=== PATIENT | male | born 1960 | race African-American/Black ===

== ENCOUNTER 2016-07-01 15:23 | Inpatient (IN) ==
[2016-07-01] MEDS ORDERED: SODIUM CHLORIDE 0.9% 500 ML IV STA (16:32)
--- NOTE | 2016-07-01 16:36 | XRay Report ---
Exam: XR chest 2V Date: 07/01/2016 4:06 PM Indication: Shortness of breath Comparison: 1:49 PM same date outside institution [facility] Technical: PA lateral Findings: Pneumonic infiltrate suspected in the left base and left lateral chest as well as the right perihilar region and medial left base. A few small reticular nodular densities are also present. No pneumothorax. Heart is normal in size. Impression: 1. Bilateral perihilar and left lower lobe pneumonic infiltrate. PROCEDURE INTERPRETED AT [facility] DEPARTMENT OF RADIOLOGY Final Report Signed by: Dr. Nino Mariscal
[2016-07-01 16:39] LABS: Basophils % 0.4 % (0.0-0.8); Hematocrit 25.3 VOL% (42.0-52.0); Hemoglobin 8.7 GM/DL (14.0-18.0); Immature Granulocytes Absolute 0.08 #; Lymphocytes # 0.9 10*3/uL (1.4-4.0); Lymphocytes % 11.4 % (21.2-54.2); Mean Corpuscular HGB Conc 34.4 GM/DL (32-36); Mean Corpuscular Hemoglobin 31 PG (27-34); Mean Corpuscular Volume 90.7 FL (87-102); Mean Platelet Volume 10.7 FL (9.6-12.0); Monocytes # 0.8 10*3/uL (0.11-0.8); Monocytes % 10.2 % (1.7-12.7); Neutrophils # 6.3 10*3/uL (1.4-7.4); Platelet Count 286 T/CUMM (130-400); Red Blood Count 2.79 MC/CUMM (3.8-5.5); Red Cell Distribution Width 13.3 % (9.3-17.3); White Blood Count 8.2 T/CUMM (4-12)
[2016-07-01] MEDS ORDERED: MAGNESIUM SULF RIDER 2 GM in PREMIX 1 EACH IV STA (16:58)
[2016-07-01 17:08] LABS: Calcium 8.6 MG/DL (8.5-10.1); Magnesium 2.1 MG/DL (1.8-2.4); Osmolality,Calculated 275.8 MOS/KG (273-304); Potassium 4.4 MMOL/L (3.5-5.1)
[2016-07-01] MEDS ORDERED: LORazepam 2 MG/1 ML VIAL IV PRN (17:11)
[2016-07-01] MEDS ORDERED: SODIUM CHLORIDE 0.9% 2,300 ML IV ONE (17:11)
[2016-07-01 17:17] LABS: Troponin I Only 0.534 NG/ML (0.00-0.045)
[2016-07-01] MEDS ORDERED: MAGNESIUM SULF RIDER 50 ML IV ONE (17:22)
--- NOTE | 2016-07-01 17:27 | Hospitalist History & Physical ---
<Viviana Mcdowell - Last Filed: 07/01/16 17:06> Assessment and Plan (1) Septic shock Status: Acute Assessment and plan: Admitted to ICU. Patient hypotensive and tachycardic. We will use pressors as needed. Urine culture and blood cultures obtained. IV fluid hydration at 30 mL 's per kilo per the sepsis protocol. Suspect pneumonia. Will start meropenem. Current Visit: Yes (2) Acute encephalopathy Status: Acute Assessment and plan: Encephalopathy secondary to sepsis and alcoholism. Will check ammonia level. Current Visit: Yes (3) Pneumonia Status: Acute Assessment and plan: Patient started on meropenem. Sputum culture ordered. Repeat chest x-ray in morning. Current Visit: Yes (4) Hyponatremia Status: Acute Assessment and plan: Low-sodium secondary to dehydration secondary to Lasix. Will gently rehydrate. We will repeat labs in the a.m. Current Visit: Yes (5) Anemia Status: Acute Assessment and plan: Guiac stools. Start patient on Protonix p.o. will check B12, folate, and iron studies. Repeat labs in a.m. Current Visit: Yes (6) Acute on chronic renal failure Status: Acute Assessment and plan: Acute on chronic renal failure secondary to dehydration. Renal ultrasound ordered. Gentle hydration. Consult renal for evaluation. Repeat labs in a.m. Current Visit: Yes (7) Elevated troponin Status: Acute Assessment and plan: Serial troponins and EKGs ordered. Current Visit: Yes (8) Severe malnutrition Status: Acute Assessment and plan: Malnutrition most likely due to alcohol abuse. We will look at serum albumin. Current Visit: Yes (9) Alcohol abuse Status: Acute Assessment and plan: Check PT and PTT. B12 and folate labs ordered. B12, folate, and thiame supplement ordered. Alcohol and ammonia level to be checked. Monitor for possible alcohol withdrawn. Prn ativan ordered. Current Visit: Yes (10) Hypomagnesemia Status: Acute Assessment and plan: 2 g of magnesium ordered from outside facility. 2 g given in ER. Will repeat mag level in a.m. Current Visit: Yes (11) Congestive heart failure Status: Acute Assessment and plan: Check BNP, echocardiogram, serial troponins, and EKGs. Current Visit: Yes (12) Diarrhea Status: Acute Assessment and plan: Send stool for WBC culture and sensitivity and Cdiff. Monitor electrolytes. Current Visit: Yes History of Present Illness Chief complaint: shortness of breath History of present illness: Mr. Sierra is a 56-year-old black male patient that was transferred to the ED via EMS from an outside facility in septic shock. Pt. complains of shortness of breath and weakness x 2 weeks that progressively worsened. The patient was seen at the [facility] in [place] and was transferred to our hospital for further evaluation of CHF. Pt. is an extremely poor historian but gives a past medical history of pneumonia. Pt admits to consuming excessive whiskey and beer. Pt is slightly confused and appears very dehydrated. Pt. smokes "a half a pack to a whole pack" of cigarettes daily. Pt lives alone. Pt denies fever, chills, chest pain, abdominal or nausea. Pt. reports urinary frequency and hesistancy as well as diarrhea which alternates with constipation. Home Medications Medication Instructions Recorded Confirmed Type No Known Home Medications [No 07/01/16 07/01/16 History Known Home Medications] Allergies Allergy/AdvReac Type Severity Reaction Status Date / Time No Known Allergies Allergy Unverified 07/01/16 15:32 Medical,Surgical,& Family Hx - Medical History Respiratory: History of: Pneumonia - Surgical History Additional Surgical History: none - Family History Family History: Reports;: Family Hypertension (dad) Denies;: Family Cancer, Family Diabetes, Family Heart Disease, Family Stroke - Social History Smoking Status: Current every day smoker Have you smoked in the last 12 months: Yes Frequency of Alcohol Use: Frequently (daily whiskey and beer) Type of Drug Use: None Marital Status: Single Lives With:: Alone Functional capacity: independent ambulation - Constitutional Constitutional: Present: fatigue, weakness, weight loss. Absent: fever(s), frequent falls, increased appetite - EENT Eyes: Absent: blurry vision, diplopia, loss of vision Ears: Absent: decreased hearing, ear discharge Nose, mouth and throat: Absent: headache(s), sore throat - Cardiovascular Cardiovascular: Present: dyspnea, dyspnea on exertion. Absent: chest pain at rest, edema - Respiratory Respiratory: Present: cough, dyspnea, dyspnea on exertion, change in phlegm color - Gastrointestinal Gastrointestinal: Present: constipation, diarrhea. Absent: abdominal pain, hematochezia, nausea, vomiting - Genitourinary Genitourinary: Present: difficulty urinating, urinary frequency. Absent: dysuria, hematuria - Neurological Neurological: Present: dizziness. Absent: focal weakness, frequent falls, headache(s), syncope - Psychiatric Psychiatric: Present: depression. Absent: anxiety - Endocrine Endocrine: Present: cold intolerance, fatigue - Hematologic/Lymphatic Hematologic/Lymphatic: Absent: easy bleeding, easy bruising Exam - Constitutional Vitals: Period Temp Pulse Resp BP Sys/Gongora Pulse Ox Last 24 Hr 98.6 F-98.6 F 109-109 20-24 97-97/-74 100 General appearance: mild distress, under weight, disheveled - Head Head exam: Present: normal inspection, normocephalic - Eye Eye exam: Present: EOMI. Absent: scleral icterus Pupils: Present: CAMI, normal accommodation - ENT ENT exam: Present: normal exam, normal external ear exam - Neck Neck exam: Present: normal inspection. Absent: thyromegaly - Respiratory Respiratory exam: Present: clear to auscultation bilaterally. Absent: rales, rhonchi, wheezes - Cardiovascular Cardiovascular exam: Present: tachycardia. Absent: systolic murmur - GI/Abdominal GI/Abdominal exam: Present: normal bowel sounds, soft. Absent: tenderness - Extremities Exam Extremities exam: Present: normal inspection, normal capillary refill, full ROM. Absent: edema - Neurological Exam Neurological exam: Present: altered, CN II-XII intact, reflexes normal. Absent : motor sensory deficit - Psychiatric Psychiatric exam: Present: normal affect, normal mood - Skin Skin exam: Present: normal color, warm, dry Results - Labs CBC & BMP: 07/01/16 16:27 Lab Results: I have reviewed the past 24 hour labs Labs: BNP greater than 20,000 Troponin 0.3 Magnesium 1.1 BUN 46 Creatinine 4 Na 129 WBC 8.94 Hbg 9.5 - EKG EKG shows: tachycardia, sinus rhythm - Diagnostic Findings Procedure: Chest x-ray: report reviewed by me (pneumonia) <Melida Haddad - Last Filed: 07/01/16 18:35> History of Present Illness History of present illness: Mr. Sierra is a 56 year old male seen and examined. Hospital course reviewed and assisted with all documentation Exam - Constitutional Vitals: Period Temp Pulse Resp BP Sys/Gongora Pulse Ox Last 24 Hr 98.6 F-98.6 F 109-109 20-24 97-97/74-74 100 Results - Labs CBC & BMP: 07/01/16 16:27 07/01/16 16:27
[2016-07-01] MEDS ORDERED: NOREPINEPHRINE 8 MG in SODIUM CHLORIDE 0.9% 242 ML IV SCH (17:30)
[2016-07-01 17:34] LABS: ABG Base Excess -7.6 MMOL/L (-2.5-2.5); ABG HCO3 18.2 MMOL/L (20-26); ABG Oxygen Saturation 98.1 % (95-100); ABG PCO2 25.4 MM HG (35-48)
[2016-07-01 17:40] LABS: INR 1.1; PT Patient Result 11.3 SECS; Partial Thromboplastin Time 33.4 SECS (0-40)
[2016-07-01] MEDS ORDERED: NOREPINEPHRINE 4 MG/4 ML VIAL IV ONE (17:46)
[2016-07-01 17:55] LABS: Anisocytosis Slight; Burr Cells Few; Platelet Estimate Normal; Poikilocytosis Slight
[2016-07-01 17:56] LABS: Magnesium 2.2 MG/DL (1.8-2.4)
[2016-07-01 18:05] LABS: Folate 9.4 NG/ML (5.4-24.0)
[2016-07-01 18:07] LABS: Troponin I Only 0.509 NG/ML (0.00-0.045)
--- NOTE | 2016-07-01 18:08 | Emergency Department Note ---
Shahzad Benson Brittany, am scribing for, and in the presence of, Kaden Rivera M.D. 16:24. Miguel Benson Howard T, M.D., personally performed the services described in this documentation, ascribed by Vida Pike in my presence, and it is both accurate and complete 627 . Arrival - Arrival Chief Complaint: Shortness of Breath Stated Complaint: chest pain ED Nursing Triage Note: pt reports sob with cough congestion for over one month. productive green cough. pt reports has not been feeling well for about 6 months and has had a 10 pound weight loss. Mode of Arrival: Stretcher Limitations: No Limitations Source: Patient, RN Notes Reviewed - History of Present Illness HPI Narrative: Patient is a 56 y/o black male presenting to the ED from [facility] of [place], [place] for further evaluation of Pneumonia, CHF, Hypomagnesemia , Elevated Troponin, and NSTEMI. Patient reports that he presented to [facility] with complaints of shortness of breath, congestion, and productive cough that he states that has been ongoing for about two weeks, worsening today. He notes that since first onset, symptoms have progressively gotten worse and decided today to seek medical attention after encouragement from a friend. He is usually seen at [facility] of [place], [place]. He denies history of HTN and has not been seen by a [employer] in the past. In room patient has an oxygen saturation of 100% on 2L of oxygen via nasal cannula. Upon ED arrival patient was hypotensive with 97/64 mmHg which has came up slightly to 100/69 mmHg in room. Patient has no other complaint/pain in the ED at this time. Onset (ago): week(s) (2) Consistency: constant Severity: moderate Severity scale (1-10): 7 Allergies/Adverse Reactions: Allergies Allergy/AdvReac Type Severity Reaction Status Date / Time No Known Allergies Allergy Unverified 07/01/16 15:32 Home Medications: Home Medications Medication Instructions Recorded Confirmed Type No Known Home Medications [No 07/01/16 07/01/16 History Known Home Medications] Review of System - Review of System 12 point system: reviewed and no additional remarkable complaints except as stated - Review of System Respiratory: Present: cough, respiratory distress, other (congestion) Cardiovascular: Absent: chest pain Medical,Surgical,& Family Hx - Social History Smoking Status: Unknown if ever smoked Exam Vital Signs: Vital Signs Temperature 98.6 F 07/01/16 15:40 Pulse Rate 109 H 07/01/16 15:40 Respiratory Rate 24 07/01/16 15:40 Blood Pressure 97/74 07/01/16 15:40 O2 Sat by Pulse Oximetry 100 07/01/16 15:29 - General General appearance: alert, in no apparent distress, other (ill appearing black male) - Head Head exam: Present: atraumatic, normocephalic, normal inspection - Eye Eye exam: Present: normal appearance, PERRL, EOMI - ENT ENT exam: Present: normal exam, normal oropharynx - Neck Neck exam: Present: normal inspection, full ROM, trachea midline - Chest Chest inspection: Present: normal inspection, symmetric chest wall rise - Respiratory Respiratory exam: Present: wheezes (to both driver bilaterally), other (crackles ). Absent: normal lung sounds bilaterally - Cardiovascular Cardiovascular exam: Present: regular rate, normal rhythm, normal heart sounds. Absent: murmur, rubs, gallop - Abdominal Exam Abdominal exam: Present: soft, normal bowel sounds. Absent: distention, tenderness - Extremities Exam Extremities exam: Present: normal inspection - Back Exam Back exam: Present: normal inspection - Neurological Exam Neurological exam: Present: alert, oriented X3, CN II-XII intact. Absent: motor sensory deficit - Psychiatric Psychiatric exam: Present: normal affect - Skin Skin exam: Present: warm, dry Course - Reevaluation(s) Reevaluation #1: Blood cultures performed at previous facility. Antibiotics and magnesium given a previous facility. Also breathing treatment, patient does feel improved and his heart rate is down his blood pressure is up. However he still looks mildly short of breath and his blood pressure still little low and we will likely admit him for continued evaluation treatment by hospitalist perhaps with cardiology referral as well. Summary of previous facility evaluation: Troponin 0.37, x-ray shows possible left lung infiltrate versus atelectasis, magnesium 1.1, BNP over 20,000, flu negative, strep negative, creatinine 4, BUNs 46, sodium 129, CBC unremarkable. Results - Labs CBC & BMP: 07/01/16 16:27 07/01/16 16:27 Lab Results: I have reviewed the patients labs Labs: Laboratory Tests 07/01/16 16:27 WBC 8.2 RBC 2.79 L Hgb 8.7 L Hct 25.3 L MCV 90.7 MCH 31 MCHC 34.4 RDW 13.3 Plt Count 286 MPV 10.7 Neut % (Auto) 77.0 H Lymph % (Auto) 11.4 L Emmet % (Auto) 10.2 Eos % (Auto) 0.0 Baso % (Auto) 0.4 Neut # (Auto) 6.3 Lymph # (Auto) 0.9 L Emmet # (Auto) 0.8 Eos # (Auto) 0.0 Baso # (Auto) 0.0 Immature Gran % 1.0 Nucleated RBC % 0.0 Immature Gran # 0.08 Nucleated RBCs # 0.00 Laboratory Tests 07/01/16 16:27 Sodium 130 L Potassium 4.4 Chloride 96 L Carbon Dioxide 18 L Anion Gap 20.4 H BUN 52 H Creatinine 3.60 H GFR Calculation 21 BUN/Creatinine Ratio 14.00 Glucose 126 H Calculated Osmolality 275.8 Calcium 8.6 Magnesium 2.1 Troponin I 0.534 H Laboratory Tests 07/01/16 07/01/16 16:27 17:17 ABG pH 7.410 ABG pCO2 25.4 L ABG pO2 110.0 H ABG HCO3 18.2 L ABG Total CO2 15.0 L ABG O2 Saturation 98.1 ABG Base Excess -7.6 L Lipase 162.0 Serum Alcohol < 15 L Laboratory Tests 07/01/16 07/01/16 07/01/16 16:27 16:27 17:18 Immature Gran % 1.0 Nucleated RBC % 0.0 Immature Gran # 0.08 Nucleated RBCs # 0.00 Platelet Estimate Normal Poikilocytosis Slight Anisocytosis Slight [place] Cells Few INR 1.1 PT Patient/Control Mix 11.3 Circ Anticoag PTT 33.4 Lactic Acid 1.6 - Diagnostic Findings Procedure: Chest x-ray: report reviewed by me (Bilateral perihilar and left lower lobe pneumonic infiltrate.) Disposition Clinical Impression: Community acquired pneumonia, Congestive heart failure, Acute renal failure, Dehydration, Hyponatremia, Dyspnea Case discussed with: patient Disposition: Disch/Xfer-Ipshort Term Hos Condition: Stable Time of Disposition: 16:35
--- NOTE | 2016-07-01 18:09 | EKG Report ---
Stationary ECG Study [facility] ER Test Date: 07/01/2016 6:07:45 PM Pat Name: NIRAJ ORR Department: Room: Gender: M Site Planner: ALISON : 1960 Requested by: Viviana Mcdowell Order Number: [id number] Reading MD: VERONICA ALLEN Intervals Mathews Rate: 89 P: 83 IL: 157 QRS: 80 QRSD: 84 T: 37 QT: 422 QTc: 469 Interpretive Statements SINUS RHYTHM ST DEVIATION AND MARKED T-WAVE ABNORMALITY, CONSIDER ANTERIOR ISCHEMIA Electronically Signed On 07-02-16 11:27:17 CDT by VERONICA ALLEN [email or web address]
[2016-07-01 18:32] LABS: % Iron Saturation 4.1 % (18-50)
[2016-07-01 19:05] LABS: Apearance,Urine Slightly Hazy (Clear); Bacteria,Urine Occasional /HPF (Few); Bilirubin,Urine Negative (Negative); Blood, Urine Small mg/dL (Negative); Glucose,Urine (UA) Negative (Negative); Hyaline Casts,Urine 28 /LPF (0-3); Ketones,Urine Negative (Negative); Mucus,Urine Occasional /LPF (Occasional); Nitrite,Urine Negative (Negative); Protein,Urine 30 MG/DL; RBC,Urine 1 /HPF (0-4); Squamous Epithelial Cell,Urine Occasional /HPF (0-10); Urine Color Amber (Yellow); Urine Specific Gravity 1.014 (1.001-1.035); WBC,Urine 1 /HPF (0-6)
[2016-07-01] MEDS ORDERED: MEROPENEM 1,000 MG VIAL IV ONE (19:09)
[2016-07-01] MEDS ORDERED: SODIUM CHLORIDE 0.9% 100 ML IV ONE (19:09)
[2016-07-01] MEDS: MEROPENEM 1,000 MG in SODIUM CHLORIDE 0.9% 100 ML IV SCH (19:13)
[2016-07-01 19:15] LABS: Barbiturates Screen,Urine Negative (Negative); Benzodiazepines Screen,Urine Negative (Negative); Cannabinoid Screen,Urine Negative (Negative); Opiate Screen,Urine Negative (Negative); Phencyclidine Screen,Urine Negative (Negative)
[2016-07-01] MEDS ORDERED: ONDANSETRON 4 MG/2 ML VIAL IV PRN (20:04)
[2016-07-01] MEDS ORDERED: DOCUSATE SODIUM 100 MG CAPSULE PO PRN (20:04)
[2016-07-01] MEDS: ALBUTEROL/IPRATROPIUM 3 ML NEB RESP TX SCH ×2 (20:19→23:02)
[2016-07-01 20:39] LABS: Ammonia < 10 UMOL/L (11-32)
[2016-07-01] MEDS: PANTOPRAZOLE 40 MG TABLET PO SCH (21:14)
[2016-07-01] MEDS: ZALEPLON 5 MG CAPSULE PO PRN (21:14)
[2016-07-01] MEDS: SODIUM CHLORIDE 0.9% 1,000 ML IV SCH (21:48)
[2016-07-02] MEDS: ALBUTEROL/IPRATROPIUM 3 ML NEB RESP TX SCH ×6 (02:23→23:30)
[2016-07-02] MEDS: ACETAMINOPHEN 325 MG TABLET PO PRN ×2 (04:10→09:47)
[2016-07-02] MEDS: MEROPENEM 1,000 MG in SODIUM CHLORIDE 0.9% 100 ML IV SCH ×2 (05:55→16:31)
[2016-07-02 06:09] LABS: Basophils % 0.3 % (0.0-0.8); Eosinophils % 0.1 % (0.00-10.9); Hematocrit 21.9 VOL% (42.0-52.0); Hemoglobin 7.4 GM/DL (14.0-18.0); Immature Granulocytes % 0.9 %; Immature Granulocytes Absolute 0.07 #; Lymphocytes # 0.5 10*3/uL (1.4-4.0); Lymphocytes % 6.8 % (21.2-54.2); Mean Corpuscular HGB Conc 33.8 GM/DL (32-36); Mean Corpuscular Hemoglobin 31 PG (27-34); Mean Corpuscular Volume 92.8 FL (87-102); Mean Platelet Volume 10.6 FL (9.6-12.0); Monocytes # 0.6 10*3/uL (0.11-0.8); Monocytes % 7.5 % (1.7-12.7); Neutrophils # 6.5 10*3/uL (1.4-7.4); Neutrophils % 84.4 % (38.7-73.9); Platelet Count 226 T/CUMM (130-400); Red Blood Count 2.36 MC/CUMM (3.8-5.5); Red Cell Distribution Width 13.4 % (9.3-17.3); White Blood Count 7.6 T/CUMM (4-12)
[2016-07-02 06:21] LABS: INR 1.1; PT Patient Result 11.6 SECS; Partial Thromboplastin Time 31.7 SECS (0-40)
[2016-07-02 06:50] LABS: Alanine Aminotransferase 10 U/L (16-61); Albumin 2.1 G/DL (3.4-5.0); Alkaline Phosphatase 33 U/L (45-117); Aspartate Amino Transferase 21 U/L (0-37); Bilirubin,Total < 0.39 MG/DL (0.2-1.0); Blood Urea Nitrogen 46 MG/DL (7-18); Calcium 8.1 MG/DL (8.5-10.1); Cholesterol 58 MG/DL (50-200); Glucose 124 MG/DL (74-106); HDL Cholesterol 13 MG/DL (40-60); Osmolality,Calculated 278.4 MOS/KG (273-304); Potassium 4.1 MMOL/L (3.5-5.1); Risk Ratio 4.46; Sodium 133 MMOL/L (136-145); Thyroid Stimulating Hormone 0.435 uIU/ml (0.358-3.74); Total Protein 5.9 G/DL (6.4-8.3); Triglycerides 97 MG/DL (2-150); VLDL CHOLESTEROL 19.4 MG/DL
--- NOTE | 2016-07-02 07:24 | XRay Report ---
Exam: XR chest 1V portable Date: 07/02/2016 4:00 AM Indication: Shortness of breath pneumonia Comparison: 07/01/2016 Technical: AP portable Findings: Patchy interstitial alveolar infiltrates present involving the lower one half of the left chest as well as in the perihilar region. The examination reveals fractures of the fifth sixth and seventh ribs on the left. This was not well delineated on the previous exam. External cardiac leads are present. Oxygen tubing is noted. Mild cardiomegaly. No pneumothorax present. Impression: 1. Persistent and slight increasing pneumonic infiltrate in the left lateral midlung zone and left base and persistent abnormalities in the right perihilar region 2. Left-sided rib fractures noted without pneumothorax 3. A few areas reticular nodular densities to suggest underlying granuloma changes well bilaterally PROCEDURE INTERPRETED AT [facility] DEPARTMENT OF RADIOLOGY Final Report Signed by: Dr. Nino Mariscal
[2016-07-02] MEDS: SODIUM CHLORIDE 0.9% 1,000 ML IV SCH (07:53)
[2016-07-02] MEDS: FOLIC ACID 1 MG TABLET PO SCH (08:08)
[2016-07-02] MEDS: MULTIVITAMIN (CENTRUM) TABLET PO SCH (08:08)
[2016-07-02] MEDS: PANTOPRAZOLE 40 MG TABLET PO SCH ×2 (08:08→20:37)
[2016-07-02] MEDS: THIAMINE 100 MG TABLET PO SCH (08:08)
[2016-07-02] MEDS ORDERED: PANTOPRAZOLE 40 MG TABLET PO SCH (09:00)
--- NOTE | 2016-07-02 09:23 | Hospitalist Progress Note ---
Assessment and Plan (1) Acute on chronic renal failure Status: Acute Assessment and plan: Improving with IV fluids. Nephrology following. Current Visit: Yes (2) Pneumonia Status: Acute Assessment and plan: Patient currently receiving Merrem. Sputum cultures and urine antigens pending. Pulmonary consult ordered. Current Visit: Yes Qualifiers: Pneumonia type: due to unspecified organism Laterality: left (3) Severe malnutrition Status: Acute Assessment and plan: Due to chronic alcoholism and decreased oral intake. Current Visit: Yes (4) Alcohol abuse Status: Acute Assessment and plan: Monitor for delirium tremens. Patient being treated with Librium and Ativan as needed. Multivitamin thiamine and folate added. Current Visit: Yes (5) Dehydration Status: Acute Assessment and plan: Continue IV fluids. Current Visit: Yes (6) Hyponatremia Status: Acute Assessment and plan: Continue normal saline. Current Visit: Yes (7) Anemia Status: Acute Assessment and plan: Anemia panel ordered. Hold off transfusion until afebrile. Current Visit: Yes Hospitalist: Subjective Interval history: Patient seen and examined. Chest x-ray reviewed showing worsening left lung pneumonia. He is off IV pressor therapy. He continues to have periods of tachycardia. He is becoming shaky and admits to drinking alcohol daily. Left rib fractures are noted on the x-ray. His renal function is improving but is not good enough for a CT of the chest yet. Pulmonary consult in process. Exam - Constitutional Vitals: Period Temp Pulse Resp BP Sys/Gongora Pulse Ox Last 24 Hr 98.7 F-100.6 F 76-123 14-32 83-147/52-87 98-100 Exam: Constitutional System: Severe distress. Mild tremulousness. Head: Normocephalic, atraumatic. Ears, Nose and Throat System: No pain or tenderness. No epistaxis or discharge Eyes System: Pupils equal, round, and reactive. Extraocular muscles intact. Neck: Supple, without adenopathy, No jugular venous distention. No thyromegaly, neck mass, or prior surgery apparent. Respiratory System: Chest with rhonchi bilaterally to auscultation. Cardiovascular System: Heart with tachycardic rate and rhythm. No murmur. GI System: Abdomen soft, nontender. Normo active bowel sounds present. Musculoskeletal System: limbs with no pedal edema. Full distal pulses. Neurological System: No discernable sensory deficit. No aphasia Psychiatric System: Conversation is rational Results - Labs CBC & BMP: 07/02/16 05:24 07/02/16 05:24 Lab Results: I have reviewed the past 24 hour labs - Diagnostic Findings Procedure: Chest x-ray: image reviewed by me, report reviewed by me
[2016-07-02] MEDS ORDERED: SODIUM CHLORIDE 0.9% 1,000 ML IV SCH (09:30)
[2016-07-02] MEDS: TAMSULOSIN 0.4 MG CAPSULE PO SCH (09:47)
--- NOTE | 2016-07-02 09:50 | Pulmonology Consult Note ---
Assessment and Plan (1) COPD (chronic obstructive pulmonary disease) Status: Acute Assessment and plan: The patient is a chronic smoker and looks like he has fairly significant COPD. Will continue with treatment. Current Visit: Yes (2) Septic shock Status: Acute Assessment and plan: Patient has been getting fluids and antibiotics for his shock. He is hemodynamically stable at present. Current Visit: Yes (3) Anemia Status: Acute Assessment and plan: Patient's hematocrit is down to around 22. Current Visit: Yes (4) Acute on chronic renal failure Status: Acute Assessment and plan: Patient's creatinine today is down to 2.4 from 3.6 Current Visit: Yes (5) Pneumonia Status: Acute Assessment and plan: The patient has a left mid lung consolidation. Current Visit: Yes Qualifiers: Pneumonia type: due to unspecified organism Laterality: left (6) Alcohol abuse Status: Acute Assessment and plan: Patient will have to be watched for DTs. Current Visit: Yes History of Present Illness Chief complaint: Pneumonia History of present illness: Mr. Sierra is a 56 year old black male that apparently smokes a lot and drinks frequently came in with some coughing and chest congestion. He has not felt well for couple weeks and said he has been having some fever and chills. He has been more short of breath and actually was sent over with a hypotension and possible shock. His x-ray shows left lung consolidation. The patient says he has been coughing and having some chills for couple weeks. He apparently drinks and smokes quite a lot. He says he does not use any medicines for his breathing. Home Medications Medication Instructions Recorded Confirmed Type No Known Home Medications [No 07/01/16 07/01/16 History Known Home Medications] Allergies Allergy/AdvReac Type Severity Reaction Status Date / Time No Known Allergies Allergy Unverified 07/01/16 15:32 - Constitutional Constitutional: Present: chills, fever(s), weakness, weight loss - EENT Eyes: Absent: loss of vision Ears: Absent: decreased hearing Nose, mouth and throat: Absent: dysphagia, hoarseness, sinus pressure - Cardiovascular Cardiovascular: Present: dyspnea. Absent: chest pain at rest, edema, orthopnea - Respiratory Respiratory: Present: cough, dyspnea, change in phlegm color. Absent: hemoptysis - Gastrointestinal Gastrointestinal: Present: constipation, diarrhea. Absent: abdominal pain, dysphagia, nausea, vomiting - Genitourinary Genitourinary: Present: difficulty urinating, urinary frequency. Absent: hematuria - Musculoskeletal Musculoskeletal: Present: muscle weakness. Absent: arthralgias - Neurological Neurological: Present: dizziness. Absent: abnormal speech, focal weakness, paresthesias - Psychiatric Psychiatric: Present: confusion, depression Exam (Pulmonay) H&P - Constitutional Vitals: Period Temp Pulse Resp BP Sys/Gongora Pulse Ox Last 24 Hr 98.7 F-100.6 F 76-123 14-32 83-147/52-87 98-100 General appearance: mild distress, under weight - Head Head exam: Present: normal inspection, normocephalic - Eye Eye exam: Present: EOMI. Absent: scleral icterus Pupils: Present: CAMI - ENT ENT exam: Present: normal exam - Neck Neck exam: Present: normal inspection. Absent: lymphadenopathy, thyromegaly - Respiratory Respiratory exam: Present: decreased breath sounds, rhonchi - Cardiovascular Cardiovascular exam: Present: regular rate and rhythm, tachycardia. Absent: gallop, systolic murmur - GI/Abdominal GI/Abdominal exam: Present: normal bowel sounds, soft. Absent: distended, organomegaly, tenderness - Extremities Exam Extremities exam: Absent: calf tenderness, edema - Neurological Exam Neurological exam: Present: alert, oriented X3, CN II-XII intact - Psychiatric Psychiatric exam: Present: normal affect - Skin Skin exam: Present: warm, dry Medical,Surgical,& Family Hx - Medical History Respiratory: History of: Pneumonia - Family History Family History: Reports;: Family Hypertension (dad) Denies;: Family Cancer, Family Diabetes, Family Heart Disease, Family Stroke - Social History Smoking Status: Current every day smoker Frequency of Alcohol Use: Frequently Type of Drug Use: None Results - Labs CBC & BMP: 07/02/16 05:24 07/02/16 05:24 Labs: His PO2 is 110 with a PCO2 of 25 and a pH of 7.41 - Diagnostic Findings Procedure: Chest x-ray: image reviewed by me, report reviewed by me (Chest x- ray shows COPD changes with a left mid lung infiltrate)
[2016-07-02] MEDS ORDERED: SODIUM CHLORIDE 0.9% 1,000 ML IV ONE (10:02)
[2016-07-02] MEDS ORDERED: LORazepam 2 MG/1 ML VIAL IV ONE (10:12)
[2016-07-02] MEDS ORDERED: MORPHINE 2 MG/1 ML SYRINGE IV PRN (10:13)
--- NOTE | 2016-07-02 10:56 | ECHO Report ---
Tab Sierra Exam Date: 07/02/2016 07:56 Referring Physician: Technologist: Shanti Cedeno Age: 56 Ht (in): 73 Wt (lb): 172 Gender: M Exam Location: [facility] Echo Indications: pneumonia, CHF, Dysnea, septic shock, anemia, hyponatemia, elevatted troponin BP: 109 / 69 HR: 94 Rhythm: Sinus Technical Quality: Fair IMPRESSIONS Normal left ventricular cavity size. Mild concentric left ventricular hypertrophy. Enlarged poorly contractile right ventricle. Mild - moderately increased right atrial size. Normal left atrial size. Mild mitral valve sclerosis. Mild aortic valve sclerosis without stenosis or regurgitation. Mild tricuspid valve sclerosis. Moderate tricuspid valve regurgitation. Tricuspid regurgitation velocities suggest a PAP 28.3 of mmHg + RAP. Morphologically normal pulmonic valve. No pulmonary valve regurgitation. Trivial pericardial effusion. Normal size aortic root and proximal ascending aorta. MEASUREMENTS (Male / Female) Normal Values 2D ECHO LV Diastolic Diameter PLAX 4.2 cm 4.2 - 5.9 / 3.9 - 5.3 cm LV Systolic Diameter PLAX 2.8 cm LV Fractional Shortening PLAX 33.5 % IVS Diastolic Thickness 1.2 cm 0.6 - 1.0 / 0.6 - 0.9 cm LVPW Diastolic Thickness 0.9 cm 0.6 - 1.0 / 0.6 - 0.9 cm RV Internal Dim ED PLAX 4.0 cm Aortic Root Diameter 2.5 cm LA Systolic Diameter LX 3.0 cm 3.0 - 4.0 / 2.7 - 3.8 cm DOPPLER TR Peak Velocity 266.0 cm/s TR Peak Gradient 28.3 mmHg FINDINGS Left Ventricle Normal left ventricular cavity size. Mild concentric left ventricular hypertrophy.left ventricular ejection fraction is estimated at 50-55 %. Right Ventricle Enlarged poorly contractile right ventricle Right Atrium Mild - moderately increased right atrial size. Left Atrium Normal left atrial size. Mitral Valve Mild mitral valve sclerosis. Aortic Valve Mild aortic valve sclerosis without stenosis or regurgitation. Tricuspid Valve Mild tricuspid valve sclerosis. Moderate tricuspid valve regurgitation. Tricuspid regurgitation velocities suggest a PAP 28.3 of mmHg + RAP. Pulmonic Valve Morphologically normal pulmonic valve. No pulmonary valve regurgitation. Pericardium Trivial pericardial effusion. Aorta Normal size aortic root and proximal ascending aorta. Kaleb Mcallister MD (Electronically Signed) Final Date: 02 July 2016 10:55
[2016-07-02] MEDS: methylPREDNISolone SOD SUC 40 MG/1 ML VIAL IV SCH ×2 (11:07→17:06)
[2016-07-02 11:25] LABS: % Iron Saturation 5.6 % (18-50); Ferritin 1372.8 ng/ml (26-388)
[2016-07-02] MEDS ORDERED: IBUPROFEN 600 MG TABLET PO ONE (11:33)
--- NOTE | 2016-07-02 11:39 | Nephrology Consult Note ---
History of Present Illness Chief complaint: Cough History of present illness: Mr. Sierra is a 56 year old male with hx of productive cough for a few weeks. Admitted for sepsis due to left pneumonia. CXR reveals left rib fxs 5-7. Pt denies any past medical hx. Creatinine was [address] [facility]. With IVFs his sodium and creatinine have improved to 2.4 for eGFR 29cc/min by CKD- EPI formula. His CXR has fluffed out with right perihilar and left mid lung alveolar infiltrates with underlying probable COPD. Cough has become less productive. He admits to long (50pkyr) hx of smoking, 10 lb weight loss in lasd month and night sweats. Chart reveals significant ETOH daily on CIWI protocol for DTs prophylaxis. He admits to nocturia "all night long", intermittency, post void dribbling, frequency, urgency, straining to urinate, all c/w mod- severe obstructive uropathy. Denies hx of stones, UTIs or Fhx of kidney dz. Labs reveal normal LFTs, coags. UA with mild proteinuria, preserved acidification, isosthenuria. Hypoosmotic hypovolemic hyponatremia improved with NS but worsened metabolic acidosis (CO2 17). Home Medications Medication Instructions Recorded Confirmed Type No Known Home Medications [No 07/01/16 07/01/16 History Known Home Medications] Allergies Allergy/AdvReac Type Severity Reaction Status Date / Time No Known Allergies Allergy Unverified 07/01/16 15:32 Medical,Surgical,& Family Hx - Medical History Respiratory: History of: Pneumonia - Family History Family History: Reports;: Family Hypertension (dad) Denies;: Family Cancer, Family Diabetes, Family Heart Disease, Family Stroke - Social History Smoking Status: Current every day smoker Frequency of Alcohol Use: Frequently Type of Drug Use: None Review of Systems 12 point system: reviewed and no additional remarkable complaints except as stated Constitutional: fatigue, night sweats, weight loss Nose, mouth and throat: no dysphagia, no epistaxis, no sinus pressure, no sore throat Cardiovascular: dyspnea, dyspnea on exertion, no chest pain at rest, no chest pain with activity, no edema, no PND Respiratory: cough, dyspnea, no hemoptysis, no pain on inspiration Gastrointestinal: no coffee ground emesis, no constipation, no diarrhea, no dyspepsia, no dysphagia, no early satiety, no hematemesis, no hematochezia, no loose stools, no melena, no nausea, no vomiting Genitourinary: difficulty urinating, nocturia, urinary frequency (nocturia x 5nightly, urgency, intermittency, PVD), no dysuria, no flank pain, no hematuria Neurological: no abnormal gait, no abnormal speech, no convulsions, no headache( s), no syncope Hematologic/Lymphatic: no easy bleeding, no easy bruising, no lymphadenopathy Exam - Vital Signs Vital signs: Period Temp Pulse Resp BP Sys/Gongora Pulse Ox Last 24 Hr 98.7 F-103.0 F 76-153 14-38 83-147/52-93 96-100 - General Appearance General appearance: cachectic, chronically ill EENT: ATNC, PERRL, mucous membranes dry, hearing intact, vision intact Neck: no JVD, no thyromegaly Respiratory: no kyphosis, rales Cardiology: no murmurs, no rub, no edema Gastrointestinal: normoactive bowel sounds, no tenderness, no guarding Integumentary: no rash, warm and dry Neurologic: no focal deficit, no asterixis, alert and oriented x3 Musculoskeletal: no deformities, no erythema, no cyanosis Psychiatric: mood/affect appropriate, cooperative Results - Labs CBC & BMP: 07/02/16 05:24 07/02/16 05:24 Assessment and Plan (1) Pneumonia Problem details: right sided infiltrates could be consistent with aspiration. Left worsened with IVFs. At risk for postobstructive PNA. B symptoms, rule out underlying malignancy with CT when ESTEVAN improved. Pre CT EJ prophylaxis indicated with mucomyst, 1600mg po bid, cytotec 200-400mcg po q6h pre and post contrast. IVFs to euvolemia. Statins have also been shown to help prevent EJ. Status: Acute Current Visit: Yes Qualifiers: Pneumonia type: due to unspecified organism Laterality: left (2) Septic shock Problem details: Likely pulmonary source. Responded to volume. Off pressors. Status: Acute Assessment and plan: Continue broad spectrum abx. Cultures pending. Current Visit: Yes (3) ESTEVAN (acute kidney injury) Problem details: Rapidly improved with IVFs @125/hr overnight. Likely prerenal. Status: Acute Assessment and plan: Change IVFs to bicarb, decrease rate to 100/hr, watch for volume overload and increased FiO2 requirement and reduce rate if desats. Random urine creatinine and urea to assess for intrinsic vs prerenal process. Current Visit: Yes (4) Hyponatremia Problem details: Improved with IVFs. Status: Acute Current Visit: Yes (5) Hyponatremia Problem details: Hypo osmotic, hypovolemic. Improved with IVFS. Status: Acute Current Visit: Yes (6) Ribs, multiple fractures Problem details: Asymptomatic. Elevated total globulins, ESTEVAN. Rule out paraproteinemia, SPEP, UPEP, free light chains. Status: Acute Assessment and plan: Rule out pathologic fx. Current Visit: Yes (7) Metabolic acidosis Problem details: appropriate resp compensation. Change IVFs to bicarb containing. Watch for low potassium as this is corrected and replace prn. Status: Acute Current Visit: Yes
[2016-07-02] MEDS: SODIUM BICARB INJ 100 MEQ in DEXTROSE 5% 1,000 ML IV SCH (13:48)
[2016-07-02] MEDS: miSOPROStol 200 MCG TABLET PO SCH ×3 (13:49→20:37)
--- NOTE | 2016-07-02 15:51 | Ultrasound Report ---
Exam: US renal Bilateral Date: 07/02/2016 6:12 PM Indication: Question hydronephrosis Comparison: None Findings: Right kidney. 9.9 x 4 x 5.1 cm. Mild increased echogenicity present. Slight fullness of the right renal collecting system with trace amount of perinephric fluid present. Left kidney. 10.9 x 5.6 x 4.5 cm. Minimal perinephric fluid collection mild increased echogenicity. No obstruction present with slight fullness of the collecting system calyceal structures Impression: 1. Minimal perinephric fluid collections 2. Mild dilatation of the calyceal structures that could represent minimal hydronephrosis changes the renal pelvis does not appear to be significant dilated or distended within either kidney CT imaging may be beneficial for further evaluation Ultrasound images were stored and captured PROCEDURE INTERPRETED AT [facility] DEPARTMENT OF RADIOLOGY Final Report Signed by: Dr. Nino Mariscal
[2016-07-02] MEDS: ACETYLCYSTEINE 600 MG CAPSULE PO SCH ×2 (16:29→20:37)
[2016-07-02] MEDS: chlordiazePOXIDE 25 MG CAPSULE PO SCH ×3 (16:29→21:25)
[2016-07-02] MEDS: ATORVASTATIN 40 MG TABLET PO SCH (20:37)
[2016-07-03] MEDS: SODIUM BICARB INJ 100 MEQ in DEXTROSE 5% 1,000 ML IV SCH ×2 (01:39→15:11)
[2016-07-03] MEDS: methylPREDNISolone SOD SUC 40 MG/1 ML VIAL IV SCH ×3 (01:39→18:37)
[2016-07-03] MEDS: ALBUTEROL/IPRATROPIUM 3 ML NEB RESP TX SCH ×6 (03:45→23:58)
[2016-07-03] MEDS: MEROPENEM 1,000 MG in SODIUM CHLORIDE 0.9% 100 ML IV SCH ×2 (05:07→18:37)
[2016-07-03 05:34] LABS: Basophils % 0.1 % (0.0-0.8); Hematocrit 22.9 VOL% (42.0-52.0); Hemoglobin 7.7 GM/DL (14.0-18.0); Immature Granulocytes % 1.3 %; Lymphocytes # 0.3 10*3/uL (1.4-4.0); Lymphocytes % 4.4 % (21.2-54.2); Mean Corpuscular HGB Conc 33.6 GM/DL (32-36); Mean Corpuscular Hemoglobin 31 PG (27-34); Mean Corpuscular Volume 92.3 FL (87-102); Mean Platelet Volume 11.4 FL (9.6-12.0); Monocytes # 0.3 10*3/uL (0.11-0.8); Monocytes % 3.2 % (1.7-12.7); Platelet Count 200 T/CUMM (130-400); Red Blood Count 2.48 MC/CUMM (3.8-5.5); Red Cell Distribution Width 13.6 % (9.3-17.3); White Blood Count 7.7 T/CUMM (4-12)
[2016-07-03 06:22] LABS: Calcium 8.7 MG/DL (8.5-10.1); Osmolality,Calculated 278.4 MOS/KG (273-304)
--- NOTE | 2016-07-03 07:08 | Pulmonology Progress Note ---
Pulmonary - PN: Subj Interval history: Patient is a 56-year-old black man that apparently is a heavy smoker and drinker. He comes in with fever coughing and congestion and has considerable left lung pneumonia. Patient has a very harsh bronchitic cough. He says he is breathing a little better today and not as short of breath. He apparently did fairly well last night and did get some rest. He is tolerating his medicines okay. Exam (Progress Note) - Constitutional Vitals: Period Temp Pulse Resp BP Sys/Gongora Pulse Ox Last 24 Hr 97.3 F-103.0 F 75-153 16-38 97-147/62-93 90-100 Exam: General appearance: no distress, under weight, he looks chronically ill but does have a very harsh cough. He is breathing comfortably. - Head Head exam: Present: normal inspection, normocephalic - Eye Eye exam: Present: EOMI. Absent: scleral icterus Pupils: Present: CAMI - ENT ENT exam: Present: normal exam - Neck Neck exam: Present: normal inspection. Absent: lymphadenopathy, thyromegaly - Respiratory Respiratory exam: Present: He has coarse breath sounds with bilateral rhonchi. - Cardiovascular Cardiovascular exam: Present: regular rate and rhythm, tachycardia. Absent: gallop, systolic murmur - GI/Abdominal GI/Abdominal exam: Present: normal bowel sounds, soft. Absent: distended, organomegaly, tenderness - Extremities Exam Extremities exam: Absent: calf tenderness, edema - Neurological Exam Neurological exam: Present: alert, oriented X3, CN II-XII intact - Psychiatric Psychiatric exam: Present: normal affect - Skin Skin exam: Present: warm, dry Results - Labs CBC & BMP: 07/03/16 05:21 07/03/16 05:21 - Diagnostic Findings Procedure: Chest x-ray: image reviewed by me, report reviewed by me (Chest x- ray showed a consolidated left midlung pneumonia) Assessment and Plan (1) COPD (chronic obstructive pulmonary disease) Status: Acute Assessment and plan: The patient is a chronic smoker and looks like he has fairly significant COPD. Will continue with treatment. He does have a harsh cough. Current Visit: Yes (2) Septic shock Problem details: Likely pulmonary source. Responded to volume. Off pressors. Status: Acute Assessment and plan: Patient has been getting fluids and antibiotics for his shock. He is hemodynamically stable at present. Current Visit: Yes (3) Anemia Status: Acute Assessment and plan: Patient's hematocrit is down to around 22.9. Current Visit: Yes (4) Acute on chronic renal failure Status: Acute Assessment and plan: Patient's creatinine continues to improve and is down to 1.5 Current Visit: Yes (5) Pneumonia Problem details: right sided infiltrates could be consistent with aspiration. Left worsened with IVFs. At risk for postobstructive PNA. B symptoms, rule out underlying malignancy with CT when ESTEVAN improved. Pre CT EJ prophylaxis indicated with mucomyst, 1600mg po bid, cytotec 200-400mcg po q6h pre and post contrast. IVFs to euvolemia. Statins have also been shown to help prevent EJ. Status: Acute Assessment and plan: The patient has a left mid lung consolidation. Cultures are negative so far. He will continue with his antibiotics. He may need a bronchoscope at some point. Current Visit: Yes Qualifiers: Pneumonia type: due to unspecified organism Laterality: left (6) Alcohol abuse Status: Acute Assessment and plan: Patient will have to be watched for DTs. He is fairly stable so far Current Visit: Yes
[2016-07-03 07:31] LABS: Lymphocytes 2 % (20-55); Microcytosis 1+; Platelet Estimate Adequate; Segmented Neutrophils 95 % (50-85); Total Cells Counted 100
[2016-07-03] MEDS: miSOPROStol 200 MCG TABLET PO SCH ×4 (08:31→20:54)
[2016-07-03] MEDS: THIAMINE 100 MG TABLET PO SCH (08:41)
[2016-07-03] MEDS: chlordiazePOXIDE 25 MG CAPSULE PO SCH ×3 (08:41→20:55)
[2016-07-03] MEDS: PANTOPRAZOLE 40 MG TABLET PO SCH ×2 (08:41→20:55)
[2016-07-03] MEDS: ACETYLCYSTEINE 600 MG CAPSULE PO SCH ×2 (08:41→20:55)
[2016-07-03] MEDS: MULTIVITAMIN (CENTRUM) TABLET PO SCH (08:41)
[2016-07-03] MEDS: TAMSULOSIN 0.4 MG CAPSULE PO SCH (08:41)
[2016-07-03] MEDS: FOLIC ACID 1 MG TABLET PO SCH (08:41)
--- NOTE | 2016-07-03 08:50 | XRay Report ---
Exam: XR chest 1V portable Date: 07/03/2016 4:00 AM Indication: Shortness of breath Comparison: 04/22/2016 Technical: AP portable Findings: Old left rib fractures present. Patchy alveolar interstitial infiltrate left midlung zone and left base and right perihilar region persists. Mild prominence the cardiac silhouette. No pneumothorax. External cardiac leads are present. Mediastinum is intact. Impression: 1. Persistent bilateral pneumonic infiltrates unchanged from prior study PROCEDURE INTERPRETED AT [facility] DEPARTMENT OF RADIOLOGY Final Report Signed by: Dr. Nino Mariscal
--- NOTE | 2016-07-03 10:43 | Hospitalist Progress Note ---
Assessment and Plan (1) Acute on chronic renal failure Status: Acute Assessment and plan: Improving with IV fluids. Nephrology following. Agree with bicarb drip. 24-hour urine collection pending. Current Visit: Yes (2) Pneumonia Problem details: right sided infiltrates could be consistent with aspiration. Left worsened with IVFs. At risk for postobstructive PNA. B symptoms, rule out underlying malignancy with CT when ESTEVAN improved. Pre CT EJ prophylaxis indicated with mucomyst, 1600mg po bid, cytotec 200-400mcg po q6h pre and post contrast. IVFs to euvolemia. Statins have also been shown to help prevent EJ. Status: Acute Assessment and plan: Patient currently receiving Merrem. Sputum cultures and urine antigens pending. Pulmonary consult reviewed and appreciated Current Visit: Yes Qualifiers: Pneumonia type: due to unspecified organism Laterality: left (3) Severe malnutrition Status: Acute Assessment and plan: Due to chronic alcoholism and decreased oral intake. Patient drinking boost and eating meals. Current Visit: Yes (4) Alcohol abuse Status: Acute Assessment and plan: Monitor for delirium tremens. Patient being treated with Librium and Ativan as needed. Multivitamin thiamine and folate added. Current Visit: Yes (5) Dehydration Status: Acute Assessment and plan: Continue IV fluids. Current Visit: Yes (6) Hyponatremia Problem details: Hypo osmotic, hypovolemic. Improved with IVFS. Status: Acute Assessment and plan: Continue normal saline. Current Visit: Yes (7) Anemia Status: Acute Assessment and plan: Anemia panel ordered. Hold off transfusion until afebrile. Current Visit: Yes Hospitalist: Subjective Interval history: Patient seen and examined in the intensive care unit. His tachycardia has improved. Oxygen saturations and blood pressure stable. Chest x-ray continues to show consolidation of the left lung. Renal function improving with IV fluids. Plan to transfer to the floor. Exam - Constitutional Vitals: Period Temp Pulse Resp BP Sys/Gongora Pulse Ox Last 24 Hr 97.3 F-102 F 75-144 16-38 97-149/62-90 90-100 Exam: Constitutional System: mild distress. Mild tremulousness. Head: Normocephalic, atraumatic. Ears, Nose and Throat System: No pain or tenderness. No epistaxis or discharge Eyes System: Pupils equal, round, and reactive. Extraocular muscles intact. Neck: Supple, without adenopathy, No jugular venous distention. No thyromegaly, neck mass, or prior surgery apparent. Respiratory System: Chest with rhonchi bilaterally to auscultation. Cardiovascular System: Heart with tachycardic rate and rhythm. No murmur. GI System: Abdomen soft, nontender. Normo active bowel sounds present. Sma catheter in place with clear yellow urine. Musculoskeletal System: limbs with no pedal edema. Full distal pulses. Neurological System: No discernable sensory deficit. No aphasia Psychiatric System: Conversation is rational Results - Labs CBC & BMP: 07/03/16 05:21 07/03/16 05:21 Lab Results: I have reviewed the past 24 hour labs - Diagnostic Findings Procedure: Chest x-ray: image reviewed by me, report reviewed by me
--- NOTE | 2016-07-03 12:14 | Nephrology Progress Note ---
Nephrology - PN: Subj Interval history: Pt states cough improved. Creatinine improved to 1.5, CO2 still 17, FeSat 5% c/ w profound iron deficient anemia. IV iron relatively contraindicated with active infection. Exam (PN)-Nephrology - Vital Signs Vital signs: Period Temp Pulse Resp BP Sys/Gongora Pulse Ox Last 24 Hr 97.3 F-99.4 F 75-120 16-28 97-149/62-90 90-100 - General Appearance General appearance: well-developed, chronically ill EENT: ATNC, PERRL, mucous membranes dry, hearing intact Neck: no JVD, no thyromegaly Respiratory: no kyphosis, rales Cardiology: no murmurs, no rub, no edema Gastrointestinal: normoactive bowel sounds, no tenderness Integumentary: no rash, warm and dry Neurologic: no focal deficit, no asterixis, alert and oriented x3 Musculoskeletal: no deformities, no erythema Psychiatric: mood/affect appropriate, cooperative - Lab 07/03/16 05:21 07/03/16 05:21 Most recent lab results ABG pH 7.410 (7.35-7.45) 07/01/16 17:17 ABG pCO2 25.4 MM HG (35-48) L 07/01/16 17:17 ABG pO2 110.0 MM HG (80-95) H 07/01/16 17:17 ABG HCO3 18.2 MMOL/L (20-26) L 07/01/16 17:17 ABG O2 Saturation 98.1 % (95-100) 07/01/16 17:17 Calcium 8.7 MG/DL (8.5-10.1) 07/03/16 05:21 Magnesium 2.2 MG/DL (1.8-2.4) 07/01/16 17:47 Assessment and Plan (1) Pneumonia Problem details: right sided infiltrates could be consistent with aspiration. Left worsened with IVFs. At risk for postobstructive PNA. B symptoms, rule out underlying malignancy with CT when ESTEVAN improved. Pre CT EJ prophylaxis indicated with mucomyst, 1600mg po bid, cytotec 200-400mcg po q6h pre and post contrast. IVFs to euvolemia. Statins have also been shown to help prevent EJ. Status: Acute Assessment and plan: Should be stable for CT chest if desired. On appropriate renoprotective meds for EJ. Current Visit: Yes Qualifiers: Pneumonia type: due to unspecified organism Laterality: left (2) Septic shock Problem details: Likely pulmonary source. Responded to volume. Off pressors. Status: Acute Assessment and plan: Continue broad spectrum abx. Cultures pending. Consider FOB with BAL to assess pneumonia pathogen, help clear secretions. Current Visit: Yes (3) ESTEVAN (acute kidney injury) Problem details: Rapidly improved with IVFs @125/hr overnight. Likely prerenal. Status: Acute Assessment and plan: IVFs changed to nelp correct acidosis. Current Visit: Yes (4) Hyponatremia Problem details: Improved with IVFs. Status: Acute Current Visit: Yes (5) Hyponatremia Problem details: Hypo osmotic, hypovolemic. Unchanged. Status: Acute Current Visit: Yes (6) Ribs, multiple fractures Problem details: Asymptomatic. Elevated total globulins, ESTEVAN. Rule out paraproteinemia, SPEP, UPEP, free light chains. Status: Acute Assessment and plan: Rule out pathologic fx. Current Visit: Yes (7) Metabolic acidosis Problem details: appropriate resp compensation. Change IVFs to bicarb containing. Watch for low potassium as this is corrected and replace prn. Status: Acute Current Visit: Yes (8) Iron (Fe) deficiency anemia Problem details: profound. IV iron sucrose relativelyl contrindicated with active infection. Consider banana bag IV. Status: Acute Current Visit: Yes
[2016-07-03] MEDS: ATORVASTATIN 40 MG TABLET PO SCH (20:54)
[2016-07-04] MEDS: SODIUM BICARB INJ 100 MEQ in DEXTROSE 5% 1,000 ML IV SCH ×3 (01:49→17:31)
[2016-07-04] MEDS: methylPREDNISolone SOD SUC 40 MG/1 ML VIAL IV SCH ×3 (01:49→17:18)
[2016-07-04] MEDS: ALBUTEROL/IPRATROPIUM 3 ML NEB RESP TX SCH ×6 (03:26→23:56)
[2016-07-04] MEDS: MEROPENEM 1,000 MG in SODIUM CHLORIDE 0.9% 100 ML IV SCH ×2 (05:13→17:18)
[2016-07-04 05:24] LABS: Basophils % 0.1 % (0.0-0.8); Hematocrit 21.2 VOL% (42.0-52.0); Hemoglobin 7.2 GM/DL (14.0-18.0); Immature Granulocytes % 1.3 %; Immature Granulocytes Absolute 0.14 #; Lymphocytes # 0.6 10*3/uL (1.4-4.0); Mean Corpuscular Hemoglobin 31 PG (27-34); Mean Corpuscular Volume 90.2 FL (87-102); Mean Platelet Volume 10.9 FL (9.6-12.0); Monocytes # 0.5 10*3/uL (0.11-0.8); Monocytes % 4.8 % (1.7-12.7); Neutrophils # 9.8 10*3/uL (1.4-7.4); Neutrophils % 88.8 % (38.7-73.9); Platelet Count 247 T/CUMM (130-400); Red Blood Count 2.35 MC/CUMM (3.8-5.5); Red Cell Distribution Width 13.2 % (9.3-17.3)
[2016-07-04 05:53] LABS: Hypochromasia 1+; Microcytosis 1+; Platelet Estimate Adequate
[2016-07-04 06:06] LABS: Calcium 8.2 MG/DL (8.5-10.1); Osmolality,Calculated 273.4 MOS/KG (273-304); Potassium 3.7 MMOL/L (3.5-5.1)
--- NOTE | 2016-07-04 07:44 | XRay Report ---
Referring Physician: Viviana Mcdowell NP Exam: XR chest 1V portable Date: July 04, 2016 at 3:11 AM Reason: Shortness of breath Comparison: Chest one view portable July 03, 2016 Findings: There is borderline cardiomegaly. Patchy opacities are present within the mid and lower lung zones bilaterally. This is concerning for pneumonia. Follow-up is recommended to confirm resolution and exclude underlying pathology. No pneumothorax or definite pleural fluid is identified. The osseous structures appear stable with several remote left rib fractures. Impression: There has been no significant change. PROCEDURE INTERPRETED AT [facility] DEPARTMENT OF RADIOLOGY Final Report Signed by: Dr. Siomara Villar
--- NOTE | 2016-07-04 08:11 | Pulmonology Progress Note ---
Pulmonary - PN: Subj Interval history: Patient is a 56-year-old black man that apparently is a heavy smoker and drinker. He comes in with fever coughing and congestion and has considerable left lung pneumonia. He says he is doing a little better although he continues to have a very harsh cough. He says that shortness of breath may be a little better. He is still very anemic. His chest x-ray shows mid lung consolidation with hilar fullness. We will plan a bronchoscope tomorrow. Exam (Progress Note) - Constitutional Vitals: Period Temp Pulse Resp BP Sys/Gongora Pulse Ox Last 24 Hr 99 F-99.8 F 82-123 17-28 100-151/67-98 90-100 Exam: General appearance: no distress, under weight, he looks chronically ill but does have a very harsh cough. He is breathing comfortably. - Head Head exam: Present: normal inspection, normocephalic - Eye Eye exam: Present: EOMI. Absent: scleral icterus Pupils: Present: CAMI - ENT ENT exam: Present: normal exam - Neck Neck exam: Present: normal inspection. Absent: lymphadenopathy, thyromegaly - Respiratory Respiratory exam: Present: He has coarse breath sounds with bilateral rhonchi. He is some crackles in the left chest. - Cardiovascular Cardiovascular exam: Present: regular rate and rhythm, tachycardia. Absent: gallop, systolic murmur - GI/Abdominal GI/Abdominal exam: Present: normal bowel sounds, soft. Absent: distended, organomegaly, tenderness - Extremities Exam Extremities exam: Absent: calf tenderness, edema - Neurological Exam Neurological exam: Present: alert, oriented X3, CN II-XII intact - Psychiatric Psychiatric exam: Present: normal affect - Skin Skin exam: Present: warm, dry Results - Labs CBC & BMP: 07/04/16 04:55 07/04/16 04:55 - Diagnostic Findings Procedure: Chest x-ray: image reviewed by me, report reviewed by me (Chest x- ray still shows left lung consolidation) Assessment and Plan (1) COPD (chronic obstructive pulmonary disease) Status: Acute Assessment and plan: The patient is a chronic smoker and looks like he has fairly significant COPD. Will continue with treatment. He does have a harsh cough. Current Visit: Yes (2) Septic shock Problem details: Likely pulmonary source. Responded to volume. Off pressors. Status: Acute Assessment and plan: Patient has been getting fluids and antibiotics for his shock. He is hemodynamically stable at present. Current Visit: Yes (3) Anemia Status: Acute Assessment and plan: Patient's hematocrit is down to around 21.2 Current Visit: Yes (4) Acute on chronic renal failure Status: Acute Assessment and plan: Patient's creatinine continues to improve and is down to 1.4 Current Visit: Yes (5) Pneumonia Problem details: right sided infiltrates could be consistent with aspiration. Left worsened with IVFs. At risk for postobstructive PNA. B symptoms, rule out underlying malignancy with CT when ESTEVAN improved. Pre CT EJ prophylaxis indicated with mucomyst, 1600mg po bid, cytotec 200-400mcg po q6h pre and post contrast. IVFs to euvolemia. Statins have also been shown to help prevent EJ. Status: Acute Assessment and plan: The patient has a left mid lung consolidation. He has some left hilar fullness also. He still has a very harsh cough. We will plan a bronchoscope tomorrow to check his airways. Current Visit: Yes Qualifiers: Pneumonia type: due to unspecified organism Laterality: left (6) Alcohol abuse Status: Acute Assessment and plan: Patient will have to be watched for DTs. He is fairly stable so far Current Visit: Yes
[2016-07-04] MEDS: miSOPROStol 200 MCG TABLET PO SCH ×4 (08:19→20:22)
[2016-07-04] MEDS: ACETYLCYSTEINE 600 MG CAPSULE PO SCH ×2 (08:19→20:22)
[2016-07-04] MEDS: THIAMINE 100 MG TABLET PO SCH (08:19)
[2016-07-04] MEDS: TAMSULOSIN 0.4 MG CAPSULE PO SCH (08:20)
[2016-07-04] MEDS: PANTOPRAZOLE 40 MG TABLET PO SCH ×2 (08:20→20:22)
[2016-07-04] MEDS: MULTIVITAMIN (CENTRUM) TABLET PO SCH (08:20)
[2016-07-04] MEDS: chlordiazePOXIDE 25 MG CAPSULE PO SCH ×3 (08:20→20:23)
[2016-07-04] MEDS: FOLIC ACID 1 MG TABLET PO SCH (08:20)
[2016-07-04 09:09] LABS: Total Protein (Chem) 6.6 G/DL (6.4-8.2)
[2016-07-04 09:10] LABS: Albumin (SPE) 2.6 G/DL (3.2-5.3); Albumin (SPE) Rel % 39.5 %; Alpha 1 (SPE) 0.4 G/DL (0.1-0.4); Alpha 1 (SPE) Rel % 6.2 %; Alpha 2 (SPE) 0.8 G/DL (0.4-1.0); Gamma (SPE) 1.8 G/DL (0.7-1.7); Gamma (SPE) Rel % 27.3 %
--- NOTE | 2016-07-04 09:28 | Hospitalist Progress Note ---
Assessment and Plan (1) Acute on chronic renal failure Status: Acute Assessment and plan: Improving with IV fluids. Nephrology following. Agree with bicarb drip Current Visit: Yes (2) Pneumonia Status: Acute Assessment and plan: Patient currently receiving Merrem. Sputum cultures and urine antigens pending. Pulmonary consult reviewed and appreciated. plan for bronchoscopy in a.m. Current Visit: Yes Qualifiers: Pneumonia type: due to unspecified organism Laterality: left (3) Severe malnutrition Status: Acute Assessment and plan: Due to chronic alcoholism and decreased oral intake. Patient drinking boost and eating meals. Current Visit: Yes (4) Alcohol abuse Status: Acute Assessment and plan: Monitor for delirium tremens. Patient being treated with Librium and Ativan as needed. Multivitamin thiamine and folate added. Current Visit: Yes (5) Dehydration Status: Acute Assessment and plan: Continue IV fluids. Current Visit: Yes (6) Hyponatremia Problem details: Hypo osmotic, hypovolemic. Unchanged. Status: Acute Assessment and plan: Continue normal saline. Current Visit: Yes (7) Anemia Status: Acute Assessment and plan: Anemia panel ordered. Transfuse 2 units of packed red blood cells today. Current Visit: Yes Hospitalist: Subjective Interval history: Patient seen and examined. No acute events overnight. Heart rate and blood pressure are stable. 24 hour urine collection completed and Sam removed. Case discussed with Dr. Grace. Plan for bronchoscopy in a.m. Will transfer to the floor today. Exam - Constitutional Vitals: Period Temp Pulse Resp BP Sys/Gongora Pulse Ox Last 24 Hr 99 F-99.8 F 82-123 17-28 100-151/67-98 90-100 Exam: Constitutional System: No distress. Mild tremulousness. Head: Normocephalic, atraumatic. Ears, Nose and Throat System: No pain or tenderness. No epistaxis or discharge Eyes System: Pupils equal, round, and reactive. Extraocular muscles intact. Neck: Supple, without adenopathy, No jugular venous distention. No thyromegaly, neck mass, or prior surgery apparent. Respiratory System: Chest with rhonchi bilaterally to auscultation. Worse on the left than the right. Cardiovascular System: Heart with regular rate and rhythm. No murmur. GI System: Abdomen soft, nontender. Normo active bowel sounds present. Musculoskeletal System: limbs with no pedal edema. Full distal pulses. Neurological System: No discernable sensory deficit. No aphasia Psychiatric System: Conversation is rational Results - Labs CBC & BMP: 07/04/16 04:55 07/04/16 04:55 Lab Results: I have reviewed the past 24 hour labs
--- NOTE | 2016-07-04 10:06 | Nephrology Progress Note ---
Nephrology - PN: Subj Interval history: PT states cough better, creatinine down to 1.4 near normal eGFR 58cc/min. Fe deficient anemia. Holding IV iron due to risk of worsening infection. Exam (PN)-Nephrology - Vital Signs Vital signs: Period Temp Pulse Resp BP Sys/Gongora Pulse Ox Last 24 Hr 99 F-100.6 F 82-123 18-28 100-151/67-98 90-100 - General Appearance General appearance: cachectic, chronically ill EENT: ATNC, PERRL, hearing intact, vision intact Neck: no JVD, no thyromegaly Respiratory: no kyphosis, rales Cardiology: no murmurs, no rub Gastrointestinal: normoactive bowel sounds, no tenderness Integumentary: no rash, warm and dry Neurologic: no focal deficit, no asterixis, alert and oriented x3 - Lab 07/04/16 04:55 07/04/16 04:55 Most recent lab results ABG pH 7.410 (7.35-7.45) 07/01/16 17:17 ABG pCO2 25.4 MM HG (35-48) L 07/01/16 17:17 ABG pO2 110.0 MM HG (80-95) H 07/01/16 17:17 ABG HCO3 18.2 MMOL/L (20-26) L 07/01/16 17:17 ABG O2 Saturation 98.1 % (95-100) 07/01/16 17:17 Calcium 8.2 MG/DL (8.5-10.1) L 07/04/16 04:55 Magnesium 2.2 MG/DL (1.8-2.4) 07/01/16 17:47 Assessment and Plan (1) Pneumonia Status: Acute Assessment and plan: Should be stable for CT chest if desired. On appropriate renoprotective meds for EJ. If no contrast given, stop EJ prophylactic meds (mucomyst, cytotec, IVFs, continue statin) Current Visit: Yes Qualifiers: Pneumonia type: due to unspecified organism Laterality: left (2) Septic shock Problem details: Likely pulmonary source. Responded to volume. Off pressors. Status: Acute Assessment and plan: FOB planned by Dr Grace tomorrow. Current Visit: Yes (3) ESTEVAN (acute kidney injury) Status: Acute Assessment and plan: IVFs continue Current Visit: Yes (4) Hyponatremia Problem details: Improved with IVFs. Status: Acute Current Visit: Yes (5) Hyponatremia Problem details: Hypo osmotic, hypovolemic. Unchanged. Maybe reset osmostat vs low solute intake (beer potomania) Status: Acute Current Visit: Yes (6) Ribs, multiple fractures Problem details: Asymptomatic. Elevated total globulins, ESTEVAN. Rule out paraproteinemia, SPEP, UPEP, free light chains pending. Status: Acute Assessment and plan: Rule out pathologic fx. Current Visit: Yes (7) Metabolic acidosis Problem details: appropriate resp compensation. Change IVFs to bicarb containing. Watch for low potassium as this is corrected and replace prn. Status: Acute Current Visit: Yes (8) Iron (Fe) deficiency anemia Problem details: profound. IV iron sucrose relativelyl contrindicated with active infection. Consider banana bag IV. Status: Acute Current Visit: Yes
--- NOTE | 2016-07-04 10:57 | Physician Query Form ---
CLICK EDIT DOCUMENT TO SELECT QUERY ANSWER --> OK --> SIGN Katrina Dyer RN, CCDS Certified Clinical Pie Crimping Machine Operator W) [phone] (f) [phone] [email or web address] PROVIDERS: Make your selection(s) from the choices in EACH section by typing an "x" and enter comments in the comment section. Please use your independent medical judgment in providing your response. This request does not imply that any particular answer is desired or expected. CLINICAL INDICATORS: (Providers should not edit this section) The medical record indicates that the patient was admitted with Sepsis, ( pneumonia) congestive heart failure, BNP of 2167 and the patient had acute renal failure on admission. Please provide further specificity regarding CHF. ACUITY: ( ) Acute ( ) Chronic ( ) Acute on Chronic ( ) Clinically unable to determine TYPE: ( ) Systolic ( ) Diastolic ( ) Combined Systolic/Diastolic ( ) Other, please specify: ( ) Clinically unable to determine (X ) The patient does NOT have CHF COMMENTS: The patient has an elevated BNP without acute congestive heart failure. This is believed to be related to his tachycardia secondary to sepsis secondary to pneumonia. Use of terms such as suspected, likely, or probable (associated with a specific diagnosis that is being evaluated, monitored, or treated as if it exists) are acceptable and can be restated in the discharge summary if not ruled out. MTDD
[2016-07-04] MEDS ORDERED: SODIUM CHLORIDE 0.9% 250 ML IV PRN (15:18)
[2016-07-04] MEDS: ATORVASTATIN 40 MG TABLET PO SCH (20:22)
[2016-07-04] MEDS: ZALEPLON 5 MG CAPSULE PO PRN (20:23)
[2016-07-05] MEDS: SODIUM BICARB INJ 100 MEQ in DEXTROSE 5% 1,000 ML IV SCH ×3 (00:22→18:24)
[2016-07-05] MEDS: methylPREDNISolone SOD SUC 40 MG/1 ML VIAL IV SCH ×3 (03:16→18:25)
[2016-07-05] MEDS: ALBUTEROL/IPRATROPIUM 3 ML NEB RESP TX SCH ×6 (03:59→23:55)
[2016-07-05] MEDS: MEROPENEM 1,000 MG in SODIUM CHLORIDE 0.9% 100 ML IV SCH ×2 (05:36→16:36)
[2016-07-05] MEDS ORDERED: MEPERIDINE 50 MG/1 ML VIAL IM ONE (07:00)
[2016-07-05] MEDS ORDERED: PROMETHAZINE 25 MG/1 ML VIAL IM ONE (07:00)
[2016-07-05] MEDS ORDERED: GLYCOPYRROLATE 0.4 MG/2 ML VIAL IM ONE (07:00)
[2016-07-05] MEDS ORDERED: MIDAZOLAM 2 MG/2 ML VIAL ONE (07:10)
[2016-07-05 07:14] LABS: Immuno Free Light Chain Kappa 19.5 MG/DL (0.33-1.94); Immuno Free Light Chain Lambda 16.99 MG/DL (0.57-2.63); Immuno Free Light Chain Ratio 1.15 MG/DL (0.26-1.65)
[2016-07-05] MEDS ORDERED: LIDOCAINE 4% TOP SOLN 50 ML BOTTLE RESP TX ONE (07:30)
[2016-07-05] MEDS ORDERED: LIDOCAINE 2% VISCOUS 100 ML BOTTLE SWISH/SPIT ONE (07:30)
[2016-07-05] MEDS ORDERED: LIDOCAINE 1% 20 ML VIAL MISC INJ ONE (07:30)
[2016-07-05] MEDS ORDERED: MIDAZOLAM 2 MG/2 ML VIAL IV ONE (07:30)
--- NOTE | 2016-07-05 07:56 | Pulmonology Progress Note ---
Pulmonary - PN: Subj Interval history: Patient is a 56-year-old black man that apparently is a heavy smoker and drinker. He comes in with fever coughing and congestion and has considerable left lung pneumonia. He says he is doing a little better although he continues to have a very harsh cough. He says he is feeling okay but still coughs a lot and cannot clear secretions. Otherwise he is doing okay. Will plan a bronchoscope today. Exam (Progress Note) - Constitutional Vitals: Period Temp Pulse Resp BP Sys/Gongora Pulse Ox Last 24 Hr 97.6 F-100.6 F 79-125 10-30 109-159/75-100 91-100 Exam: General appearance: no distress, under weight, he looks chronically ill but does have a very harsh cough. He is breathing comfortably. - Head Head exam: Present: normal inspection, normocephalic - Eye Eye exam: Present: EOMI. Absent: scleral icterus Pupils: Present: CAMI - ENT ENT exam: Present: normal exam - Neck Neck exam: Present: normal inspection. Absent: lymphadenopathy, thyromegaly - Respiratory Respiratory exam: Present: He has coarse breath sounds with bilateral rhonchi. He seems to be moving air okay. He is some crackles in the left chest. - Cardiovascular Cardiovascular exam: Present: regular rate and rhythm, tachycardia. Absent: gallop, systolic murmur - GI/Abdominal GI/Abdominal exam: Present: normal bowel sounds, soft. Absent: distended, organomegaly, tenderness - Extremities Exam Extremities exam: Absent: calf tenderness, edema - Neurological Exam Neurological exam: Present: alert, oriented X3, CN II-XII intact - Psychiatric Psychiatric exam: Present: normal affect - Skin Skin exam: Present: warm, dry Results - Labs CBC & BMP: 07/04/16 04:55 07/04/16 04:55 Assessment and Plan (1) COPD (chronic obstructive pulmonary disease) Status: Acute Assessment and plan: The patient is a chronic smoker and looks like he has fairly significant COPD. Will continue with treatment. He does have a harsh cough. Will scope today. Current Visit: Yes (2) Septic shock Problem details: Likely pulmonary source. Responded to volume. Off pressors. Status: Resolved Assessment and plan: Patient has been getting fluids and antibiotics for his shock. He is hemodynamically stable at present. His heart rate is still low but he is anemic. He says he is feeling okay Current Visit: Yes (3) Anemia Status: Acute Assessment and plan: Patient's hematocrit is down to around 21.2 Current Visit: Yes (4) Acute on chronic renal failure Status: Acute Assessment and plan: Patient's creatinine continues to improve and is down to 1.4 Current Visit: Yes (5) Pneumonia Status: Acute Assessment and plan: The patient has a left mid lung consolidation. He has some left hilar fullness also. He still has a very harsh cough. He is breathing okay and appears stable. Will proceed with a bronchoscope Current Visit: Yes Qualifiers: Pneumonia type: due to unspecified organism Laterality: left (6) Alcohol abuse Status: Acute Assessment and plan: Patient will have to be watched for DTs. He is fairly stable so far Current Visit: Yes
--- NOTE | 2016-07-05 08:00 | Operative Note ---
Date of procedure: 07/05/16 Pre-op diagnosis: Coughing with left lung infiltrate Post-op diagnosis: other (Bronchitis with severe mucus plugging) Procedure: Patient is a 56-year-old smoker that has a left lung infiltrate. He has a very harsh cough. A bronchoscope will be done to assess airways and clear airways. Timeout was performed to identify the patient. The patient is in the bronchoscopy lab. Preop: Demerol 50 mg, Phenergan 25 mg, Robinul 0.1 mg IM. Anesthesia: Versed 2 mg IVP, topical lidocaine. Procedure: The fiberoptic bronchoscope was passed transnasally through the vocal cords into the lungs. The bronchopulmonary segments were identified and specimens were obtained. Findings: There are thick secretions in the hypopharynx and the vocal cords are okay. The trachea and main bronchi are open. There is very severe mucus plugging bilaterally. There are thick plugs were washed and cleared with the bronchoscope. There is some bronchitis present but no definite endobronchial lesions seen. The right upper lobe, right middle lobe, right lower lobe are all open. The left upper lobe, lingula, and left lower lobe are open. Washings were obtained bilaterally and sent for culture and cytology. Once the airways were clear the procedure was stopped. He tolerated the procedure well without problems. Impression: Marked bronchitis with mucous plugging. Plan we will continue vigorous respiratory therapy and antibiotics and steroids. Anesthesia: conscious sedation Surgeon / Physician: Alphonse Grace Estimated blood loss: none Specimens: other (Washings were sent for culture and cytology) Condition: stable Disposition: floor Results - Labs CBC & BMP: 07/04/16 04:55 07/04/16 04:55 Discharge Plan - Discharge Medications No Action No Known Home Medications [No Known Home Medications] - Follow Up or Referral - Forms/Instructions
[2016-07-05 08:59] LABS: Basophils % 0.1 % (0.0-0.8); Eosinophils % 0.1 % (0.00-10.9); Hematocrit 29.1 VOL% (42.0-52.0); Immature Granulocytes % 0.5 %; Immature Granulocytes Absolute 0.04 #; Lymphocytes % 12.1 % (21.2-54.2); Mean Corpuscular HGB Conc 33.3 GM/DL (32-36); Mean Corpuscular Hemoglobin 30 PG (27-34); Mean Corpuscular Volume 90.1 FL (87-102); Mean Platelet Volume 10.6 FL (9.6-12.0); Monocytes # 0.8 10*3/uL (0.11-0.8); Monocytes % 10.2 % (1.7-12.7); Neutrophils # 6.1 10*3/uL (1.4-7.4); Platelet Count 241 T/CUMM (130-400); Red Cell Distribution Width 14.3 % (9.3-17.3); White Blood Count 7.9 T/CUMM (4-12)
[2016-07-05 09:09] LABS: Hemoglobin 9.7 GM/DL (14.0-18.0); Red Blood Count 3.23 MC/CUMM (3.8-5.5)
[2016-07-05 09:22] LABS: Hypochromasia 1+; Lymphocytes 16 % (20-55); Platelet Estimate Adequate; Segmented Neutrophils 74 % (50-85); Total Cells Counted 100
[2016-07-05 09:23] LABS: Microcytosis 1+
[2016-07-05 09:27] LABS: Alanine Aminotransferase 36 U/L (16-61); Albumin 2.1 G/DL (3.4-5.0); Alkaline Phosphatase 47 U/L (45-117); Aspartate Amino Transferase 75 U/L (0-37); Bilirubin,Total < 0.39 MG/DL (0.2-1.0); Blood Urea Nitrogen 24 MG/DL (7-18); Calcium 8.3 MG/DL (8.5-10.1); Glucose 111 MG/DL (74-106); Magnesium 1.2 MG/DL (1.8-2.4); Osmolality,Calculated 272.2 MOS/KG (273-304); Potassium 3.5 MMOL/L (3.5-5.1); Sodium 134 MMOL/L (136-145)
[2016-07-05] MEDS ORDERED: MAGNESIUM SULF RIDER 4 GM in PREMIX 1 EACH IV PRN (09:53)
--- NOTE | 2016-07-05 09:56 | Hospitalist Progress Note ---
Assessment and Plan (1) Pneumonia Status: Acute Assessment and plan: Patient currently receiving Merrem. Sputum cultures and urine antigens pending. Pulmonary consult reviewed and appreciated. Status post bronchoscopy this morning with chronic bronchitis and mucous plugging. Follow-up cultures. Current Visit: Yes Qualifiers: Pneumonia type: due to unspecified organism Laterality: left (2) Acute on chronic renal failure Status: Resolved Assessment and plan: Improving with IV fluids. Nephrology following. Renal function has returned to normal. Current Visit: Yes (3) Severe malnutrition Status: Acute Assessment and plan: Due to chronic alcoholism and decreased oral intake. Patient drinking boost and eating meals. Current Visit: Yes (4) Alcohol abuse Status: Acute Assessment and plan: Monitor for delirium tremens. Patient being treated with Librium and Ativan as needed. Multivitamin thiamine and folate added. Current Visit: Yes (5) Dehydration Status: Resolved Assessment and plan: Continue IV fluids. Current Visit: Yes (6) Hyponatremia Problem details: Hypo osmotic, hypovolemic. Unchanged. Maybe reset osmostat vs low solute intake (beer potomania) Status: Resolved Assessment and plan: Continue normal saline. Current Visit: Yes (7) Anemia Status: Acute Assessment and plan: Anemia panel ordered. Transfuse 2 units of packed red blood cells today. H&H improved after 2 units of packed red blood cells transfusion. Current Visit: Yes Qualifiers: Anemia type: iron deficiency Hospitalist: Subjective Interval history: Patient seen and examined immediately after bronchoscopy. He still a little bit sleepy and lethargic but is arousable. Respirations are unlabored and vital signs are stable. Exam - Constitutional Vitals: Period Temp Pulse Resp BP Sys/Gongora Pulse Ox Last 24 Hr 97.5 F-100.2 F 79-125 10-34 108-159/73-100 91-100 Exam: Constitutional System: No distress. No tremulousness. Head: Normocephalic, atraumatic. Ears, Nose and Throat System: No pain or tenderness. No epistaxis or discharge Eyes System: Pupils equal, round, and reactive. Extraocular muscles intact. Neck: Supple, without adenopathy, No jugular venous distention. No thyromegaly, neck mass, or prior surgery apparent. Respiratory System: Chest with rhonchi bilaterally to auscultation. Worse on the left than the right. Cardiovascular System: Heart with regular rate and rhythm. No murmur. GI System: Abdomen soft, nontender. Normo active bowel sounds present. Musculoskeletal System: limbs with no pedal edema. Full distal pulses. Neurological System: No discernable sensory deficit. No aphasia Psychiatric System: Conversation is rational Results - Labs CBC & BMP: 07/05/16 08:41 07/05/16 08:41 Lab Results: I have reviewed the past 24 hour labs - Diagnostic Findings Procedure: Chest x-ray: image reviewed by me, report reviewed by me
[2016-07-05] MEDS ORDERED: MAGNESIUM SULF RIDER 2 GM in PREMIX 1 EACH IV ONE (09:57)
[2016-07-05] MEDS: miSOPROStol 200 MCG TABLET PO SCH ×4 (10:20→21:12)
[2016-07-05] MEDS: TAMSULOSIN 0.4 MG CAPSULE PO SCH (10:20)
[2016-07-05] MEDS: PANTOPRAZOLE 40 MG TABLET PO SCH ×2 (10:20→21:12)
[2016-07-05] MEDS: MULTIVITAMIN (CENTRUM) TABLET PO SCH (10:20)
[2016-07-05] MEDS: THIAMINE 100 MG TABLET PO SCH (10:20)
[2016-07-05] MEDS: ACETYLCYSTEINE 600 MG CAPSULE PO SCH ×2 (10:21→21:15)
[2016-07-05] MEDS: FOLIC ACID 1 MG TABLET PO SCH (10:21)
[2016-07-05] MEDS: chlordiazePOXIDE 25 MG CAPSULE PO SCH ×3 (10:21→21:12)
--- NOTE | 2016-07-05 11:03 | Nephrology Progress Note ---
Nephrology - PN: Subj Interval history: Mr. Sierra is seen in follow-up of his acute renal failure. He is much improved and his creatinine is now 1.4. He underwent bronchoscopy this morning with removal of retained secretions. His chest is clear and he has no edema. Exam (PN)-Nephrology - Vital Signs Vital signs: Period Temp Pulse Resp BP Sys/Gongora Pulse Ox Last 24 Hr 97.5 F-100.2 F 79-125 10-34 108-159/73-100 91-100 - Lab 07/05/16 08:41 07/05/16 08:41 Most recent lab results ABG pH 7.410 (7.35-7.45) 07/01/16 17:17 ABG pCO2 25.4 MM HG (35-48) L 07/01/16 17:17 ABG pO2 110.0 MM HG (80-95) H 07/01/16 17:17 ABG HCO3 18.2 MMOL/L (20-26) L 07/01/16 17:17 ABG O2 Saturation 98.1 % (95-100) 07/01/16 17:17 Calcium 8.3 MG/DL (8.5-10.1) L 07/05/16 08:41 Magnesium 1.2 MG/DL (1.8-2.4) L 07/05/16 08:41
[2016-07-05] MEDS: ATORVASTATIN 40 MG TABLET PO SCH (21:12)
[2016-07-06] MEDS: methylPREDNISolone SOD SUC 40 MG/1 ML VIAL IV SCH ×3 (01:20→17:04)
[2016-07-06] MEDS: ALBUTEROL/IPRATROPIUM 3 ML NEB RESP TX SCH ×5 (03:00→19:08)
[2016-07-06] MEDS: SODIUM BICARB INJ 100 MEQ in DEXTROSE 5% 1,000 ML IV SCH (05:29)
[2016-07-06] MEDS: MEROPENEM 1,000 MG in SODIUM CHLORIDE 0.9% 100 ML IV SCH ×2 (05:30→17:04)
--- NOTE | 2016-07-06 08:15 | Nephrology Progress Note ---
Nephrology - PN: Subj Interval history: Mr. Sierar is seen in follow-up of his acute renal failure due to prerenal azotemia. He is much improved. His chest is clear other than some large airway rhonchi. He is eating and drinking well. We discussed his care with Dr. Laguna and no contrast studies are planned so we will stop his misoprostol, sodium bicarb infusion, and Mucomyst. Will sign off please reconsult if needed thank you. Exam (PN)-Nephrology - Vital Signs Vital signs: Period Temp Pulse Resp BP Sys/Gongora Pulse Ox Last 24 Hr 97.6 F-98.5 F 55-109 16-20 127-143/70-86 92-100 - Lab 07/05/16 08:41 07/05/16 08:41 Most recent lab results ABG pH 7.410 (7.35-7.45) 07/01/16 17:17 ABG pCO2 25.4 MM HG (35-48) L 07/01/16 17:17 ABG pO2 110.0 MM HG (80-95) H 07/01/16 17:17 ABG HCO3 18.2 MMOL/L (20-26) L 07/01/16 17:17 ABG O2 Saturation 98.1 % (95-100) 07/01/16 17:17 Calcium 8.3 MG/DL (8.5-10.1) L 07/05/16 08:41 Magnesium 1.2 MG/DL (1.8-2.4) L 07/05/16 08:41
--- NOTE | 2016-07-06 08:55 | Hospitalist Progress Note ---
Assessment and Plan (1) Pneumonia Status: Acute Assessment and plan: Patient currently receiving Merrem. Sputum cultures and urine antigens pending. Pulmonary consult reviewed and appreciated. Status post bronchoscopy this morning with chronic bronchitis and mucous plugging. Follow-up cultures. chest xray pa and lat. Current Visit: Yes Qualifiers: Pneumonia type: due to unspecified organism Laterality: left (2) Acute on chronic renal failure Status: Resolved Assessment and plan: Improving with IV fluids. Nephrology following. Renal function has returned to normal. stop IVF Discussed with Current Visit: Yes (3) Severe malnutrition Status: Acute Assessment and plan: Due to chronic alcoholism and decreased oral intake. Patient drinking boost and eating meals. Current Visit: Yes (4) Alcohol abuse Status: Acute Assessment and plan: Monitor for delirium tremens. Patient being treated with Librium and Ativan as needed. Multivitamin thiamine and folate added. Current Visit: Yes (5) Dehydration Status: Resolved Assessment and plan: Continue IV fluids. Current Visit: Yes (6) Hyponatremia Problem details: Hypo osmotic, hypovolemic. Unchanged. Maybe reset osmostat vs low solute intake (beer potomania) Status: Resolved Assessment and plan: Continue normal saline. Current Visit: Yes (7) Anemia Status: Acute Assessment and plan: Anemia panel ordered. Transfuse 2 units of packed red blood cells today. H&H improved after 2 units of packed red blood cells transfusion. Current Visit: Yes Qualifiers: Anemia type: iron deficiency Hospitalist: Subjective Interval history: Patient seen and examined. Fiberoptic bronchoscopy performed yesterday. Report reviewed. Bronchial washings without organisms and minimal white blood cells. The patient looks and feels much better. He ate all of his breakfast this morning. Repeat chest x-ray PA and lateral have been ordered for tomorrow morning. He is on day 6 of Merrem. Case discussed with Dr. Agudelo this morning. We will start bicarb drip and hold IV fluids. Exam - Constitutional Vitals: Period Temp Pulse Resp BP Sys/Gongora Pulse Ox Last 24 Hr 97.6 F-98.5 F 55-109 16-20 127-143/70-86 92-100 Exam: Constitutional System: No distress. No tremulousness. Head: Normocephalic, atraumatic. Ears, Nose and Throat System: No pain or tenderness. No epistaxis or discharge Eyes System: Pupils equal, round, and reactive. Extraocular muscles intact. Neck: Supple, without adenopathy, No jugular venous distention. No thyromegaly, neck mass, or prior surgery apparent. Respiratory System: Chest with rhonchi to auscultation on the left with improved air entry and air movement. Cardiovascular System: Heart with regular rate and rhythm. No murmur. GI System: Abdomen soft, nontender. Normo active bowel sounds present. Musculoskeletal System: limbs with no pedal edema. Full distal pulses. Neurological System: No discernable sensory deficit. No aphasia Psychiatric System: Conversation is rational Results - Labs CBC & BMP: 07/05/16 08:41 07/05/16 08:41 Lab Results: I have reviewed the past 24 hour labs
[2016-07-06] MEDS ORDERED: CYANOCOBALAMIN 1000 MCG/1 ML VIAL IM ONE (08:59)
[2016-07-06] MEDS: TAMSULOSIN 0.4 MG CAPSULE PO SCH (09:06)
[2016-07-06] MEDS: MULTIVITAMIN (CENTRUM) TABLET PO SCH (09:06)
[2016-07-06] MEDS: THIAMINE 100 MG TABLET PO SCH (09:06)
[2016-07-06] MEDS: PANTOPRAZOLE 40 MG TABLET PO SCH ×2 (09:06→21:08)
[2016-07-06] MEDS: chlordiazePOXIDE 25 MG CAPSULE PO SCH ×3 (09:06→21:08)
[2016-07-06] MEDS: FOLIC ACID 1 MG TABLET PO SCH (09:06)
[2016-07-06] MEDS: miSOPROStol 200 MCG TABLET PO SCH (09:09)
--- NOTE | 2016-07-06 10:41 | Pathology Report from [facility] ---
ACCESSION # : [id number] PATIENT NAME : Tab Sierra ORDERING DR : JUDY JOSEPH MD CLINICAL HX: Pneumonia POST-OP DX: Same SPECIMEN INFO: Washing,Bronchial,CASSIE - 30 ml's greyish white, mucoid. CLASS: I CLASS COMMENTS: Benign respiratory cells, inflammationCELL BLOCK: Same CLASS LEGEND: CLASS 0 Material inadequate for diagnosis because of (see comment) CLASS I Absence of atypical or abnormal cells CLASS II Atypical Cytology but no evidence of malignancy CLASS III Cytology suggestive of but not conclusive for malignancy CLASS IV Cytology strongly suggestive of malignancy CLASS V Cytology conclusive for malignancy SERVICE DATE: 07/05/2016 REPORT DATE: 07/06/2016 PATHOLOGIST: Sam Cueva
--- NOTE | 2016-07-06 13:12 | Pulmonology Progress Note ---
Pulmonary - PN: Subj Interval history: Patient is a 56-year-old black man that apparently is a heavy smoker and drinker. He comes in with fever coughing and congestion and has considerable left lung pneumonia. He says he is doing a little better although he continues to have a very harsh cough. He says he is feeling okay but still coughs a lot and cannot clear secretions. Yesterday we did a bronchoscopy and removed a lot of thick mucous plugs. He said he rested fairly well last night and is breathing better. He is eating fairly well today. He says he is not short of breath now. Overall he seems to be stable Exam (Progress Note) - Constitutional Vitals: Period Temp Pulse Resp BP Sys/Gongora Pulse Ox Last 24 Hr 97.6 F-98.5 F 55-113 16-20 113-144/70-84 94-100 Exam: General appearance: no distress, under weight, he looks chronically ill but looks comfortable now and feels better. - Head Head exam: Present: normal inspection, normocephalic - Eye Eye exam: Present: EOMI. Absent: scleral icterus Pupils: Present: CAMI - ENT ENT exam: Present: normal exam - Neck Neck exam: Present: normal inspection. Absent: lymphadenopathy, thyromegaly - Respiratory Respiratory exam: Present: He has coarse breath sounds but is moving air well in his lungs sound better. - Cardiovascular Cardiovascular exam: Present: regular rate and rhythm, tachycardia. Absent: gallop, systolic murmur - GI/Abdominal GI/Abdominal exam: Present: normal bowel sounds, soft. Absent: distended, organomegaly, tenderness - Extremities Exam Extremities exam: Absent: calf tenderness, edema - Neurological Exam Neurological exam: Present: alert, oriented X3, CN II-XII intact - Psychiatric Psychiatric exam: Present: normal affect - Skin Skin exam: Present: warm, dry Results - Labs CBC & BMP: 07/05/16 08:41 07/05/16 08:41 Assessment and Plan (1) COPD (chronic obstructive pulmonary disease) Status: Acute Assessment and plan: The patient is a chronic smoker and looks like he has fairly significant COPD. Will continue with treatment. He looks like he is breathing better today. Current Visit: Yes (2) Septic shock Problem details: Likely pulmonary source. Responded to volume. Off pressors. Status: Resolved Assessment and plan: Patient has been getting fluids and antibiotics for his shock. He is hemodynamically stable at present. His heart rate is still low but he is anemic. He says he is feeling okay Current Visit: Yes (3) Anemia Status: Acute Assessment and plan: Patient's hematocrit is better at 29. Current Visit: Yes Qualifiers: Anemia type: iron deficiency (4) Acute on chronic renal failure Status: Resolved Assessment and plan: Patient's creatinine continues to improve and is down to 1.2 Current Visit: Yes (5) Pneumonia Status: Acute Assessment and plan: The patient has a left mid lung consolidation. He has some left hilar fullness also. His bronchoscope did not show any endobronchial lesions. Bronchial washings are negative so far. Clinically he is doing better. He will have a chest x-ray tomorrow. Current Visit: Yes Qualifiers: Pneumonia type: due to unspecified organism Laterality: left (6) Alcohol abuse Status: Acute Assessment and plan: Patient will have to be watched for DTs. He is fairly stable so far Current Visit: Yes
[2016-07-06] MEDS: ZALEPLON 5 MG CAPSULE PO PRN (21:08)
[2016-07-06] MEDS: ATORVASTATIN 40 MG TABLET PO SCH (21:08)
[2016-07-07] MEDS: ALBUTEROL/IPRATROPIUM 3 ML NEB RESP TX SCH ×7 (03:11→23:21)
[2016-07-07] MEDS: methylPREDNISolone SOD SUC 40 MG/1 ML VIAL IV SCH ×5 (04:13→17:03)
[2016-07-07] MEDS: MEROPENEM 1,000 MG in SODIUM CHLORIDE 0.9% 100 ML IV SCH ×3 (04:31→16:46)
--- NOTE | 2016-07-07 07:35 | XRay Report ---
Chest, 2 views History is pneumonia Comparison 07/04/2016 Mediastinal and hilar contours unchanged There is been mild improvement of prior reticular nodular right lung opacities. There remains reticular nodular and more confluent pulmonary opacities in the left mid chest with mild worsening of more focal consolidation and air bronchograms in the left base. Tiny pleural effusions bilaterally remain. Mild pleural and parenchymal changes in the left lung apex again seen Impression: 1. Interval worsening of the left mid and lower lung zone infiltrates 2. Mild improvement of the diffuse reticular right lung opacities most likely improvement of the superimposed pulmonary edema PROCEDURE INTERPRETED AT [facility] DEPARTMENT OF RADIOLOGY Final Report Signed by: Dr. Adali Smallwood
[2016-07-07] MEDS: chlordiazePOXIDE 25 MG CAPSULE PO SCH ×3 (08:43→20:53)
[2016-07-07] MEDS: PANTOPRAZOLE 40 MG TABLET PO SCH ×2 (08:43→20:53)
[2016-07-07] MEDS: MULTIVITAMIN (CENTRUM) TABLET PO SCH (08:43)
[2016-07-07] MEDS: TAMSULOSIN 0.4 MG CAPSULE PO SCH (08:43)
[2016-07-07] MEDS: THIAMINE 100 MG TABLET PO SCH (08:43)
[2016-07-07] MEDS: FOLIC ACID 1 MG TABLET PO SCH (08:43)
[2016-07-07] MEDS: MAGNESIUM SULF RIDER 2 GM in PREMIX 1 EACH IV PRN ×2 (08:54→14:09)
--- NOTE | 2016-07-07 09:45 | Pulmonology Progress Note ---
Pulmonary - PN: Subj Interval history: Patient is a 56-year-old black man that apparently is a heavy smoker and drinker. He comes in with fever coughing and congestion and has considerable left lung pneumonia. He did well with a bronchoscopy and had no obstruction but a lot of secretions. Cultures have been negative. He is feeling much better but still has considerable consolidation in his left lung. Overall his breathing seems to be better. Exam (Progress Note) - Constitutional Vitals: Period Temp Pulse Resp BP Sys/Gongora Pulse Ox Last 24 Hr 96.7 F-98.7 F 76-113 18-92 113-144/72-83 92-100 Exam: General appearance: no distress, under weight, he looks chronically ill but looks comfortable now and feels better. He does not seem to be in too much distress now. - Head Head exam: Present: normal inspection, normocephalic - Eye Eye exam: Present: EOMI. Absent: scleral icterus Pupils: Present: CAMI - ENT ENT exam: Present: normal exam - Neck Neck exam: Present: normal inspection. Absent: lymphadenopathy, thyromegaly - Respiratory Respiratory exam: Present: He has coarse breath sounds but is moving air well in his lungs sound better. He still has bilateral rhonchi. - Cardiovascular Cardiovascular exam: Present: regular rate and rhythm, tachycardia. Absent: gallop, systolic murmur - GI/Abdominal GI/Abdominal exam: Present: normal bowel sounds, soft. Absent: distended, organomegaly, tenderness - Extremities Exam Extremities exam: Absent: calf tenderness, edema - Neurological Exam Neurological exam: Present: alert, oriented X3, CN II-XII intact - Psychiatric Psychiatric exam: Present: normal affect - Skin Skin exam: Present: warm, dry Results - Labs CBC & BMP: 07/05/16 08:41 07/05/16 08:41 - Diagnostic Findings Procedure: Chest x-ray: image reviewed by me, report reviewed by me (Chest x- ray still shows peripheral consolidation in the left midlung.) Assessment and Plan (1) COPD (chronic obstructive pulmonary disease) Status: Acute Assessment and plan: The patient is a chronic smoker and looks like he has fairly significant COPD. Will continue with treatment. He is breathing better and needs to increase his activity Current Visit: Yes (2) Septic shock Problem details: Likely pulmonary source. Responded to volume. Off pressors. Status: Resolved Assessment and plan: Patient has been getting fluids and antibiotics for his shock. He is hemodynamically stable at present. Current Visit: Yes (3) Anemia Status: Acute Assessment and plan: Patient's hematocrit is better at 29. Overall he is feeling better. Current Visit: Yes Qualifiers: Anemia type: iron deficiency (4) Acute on chronic renal failure Status: Resolved Assessment and plan: Patient's creatinine continues to improve and is down to 1.2 Current Visit: Yes (5) Pneumonia Status: Acute Assessment and plan: The patient has a left mid lung consolidation. He has some left hilar fullness also. His bronchoscope did not show any endobronchial lesions. Bronchial washings are negative so far. He still has considerable consolidation and will continue with antibiotics. Current Visit: Yes Qualifiers: Pneumonia type: due to unspecified organism Laterality: left (6) Alcohol abuse Status: Acute Assessment and plan: Patient will have to be watched for DTs. He is fairly stable so far Current Visit: Yes
--- NOTE | 2016-07-07 13:47 | Hospitalist Progress Note ---
Assessment and Plan (1) Pneumonia Status: Acute Assessment and plan: Patient currently receiving Merrem. Sputum cultures and urine antigens pending. Pulmonary consult reviewed and appreciated. Status post bronchoscopy with chronic bronchitis and mucous plugging. Follow- up cultures- so far negative. chest xray pa and lat with continued PNA on the left. Current Visit: Yes Qualifiers: Pneumonia type: due to unspecified organism Laterality: left (2) Acute on chronic renal failure Status: Resolved Assessment and plan: Improving with IV fluids. Nephrology following. Renal function has returned to normal. stop IVF Discussed with Current Visit: Yes (3) Severe malnutrition Status: Acute Assessment and plan: Due to chronic alcoholism and decreased oral intake. Patient drinking boost and eating meals. Current Visit: Yes (4) Alcohol abuse Status: Acute Assessment and plan: Monitor for delirium tremens. Patient being treated with Librium and Ativan as needed. Multivitamin thiamine and folate added. Current Visit: Yes (5) Dehydration Status: Resolved Assessment and plan: Continue IV fluids. Current Visit: Yes (6) Hyponatremia Problem details: Hypo osmotic, hypovolemic. Unchanged. Maybe reset osmostat vs low solute intake (beer potomania) Status: Resolved Assessment and plan: Continue normal saline. Current Visit: Yes (7) Anemia Status: Acute Assessment and plan: Anemia panel ordered. Transfuse 2 units of packed red blood cells today. H&H improved after 2 units of packed red blood cells transfusion. Current Visit: Yes Qualifiers: Anemia type: iron deficiency Hospitalist: Subjective Interval history: Patient seen and examined. Case discussed with Dr. Grace. Chest x-ray reviewed and compared to previous one. He continues to have an abnormal chest x -ray with consolidation and pneumonia evident in the left lung. Despite his improved physical appearance and improved vital signs and shortness of breath, the patient still gets dyspneic with movement and exertion and we do not feel he is reliable for continuation of his antibiotic therapy at home. Therefore we feel he should remain hospitalized for IV antibiotics and follow-up chest x- rays to ensure resolution. Today is day 6 of Merrem. Exam - Constitutional Vitals: Period Temp Pulse Resp BP Sys/Gongora Pulse Ox Last 24 Hr 96.7 F-98.8 F 76-106 18-92 116-144/69-83 92-100 Exam: Constitutional System: No distress. No tremulousness. Looks much better. Sitting in the chair. Head: Normocephalic, atraumatic. Ears, Nose and Throat System: No pain or tenderness. No epistaxis or discharge Eyes System: Pupils equal, round, and reactive. Extraocular muscles intact. Neck: Supple, without adenopathy, No jugular venous distention. No thyromegaly, neck mass, or prior surgery apparent. Respiratory System: Chest with rhonchi to auscultation on the left with improved air entry and air movement. Cardiovascular System: Heart with regular rate and rhythm. No murmur. GI System: Abdomen soft, nontender. Normo active bowel sounds present. Musculoskeletal System: limbs with no pedal edema. Full distal pulses. Neurological System: No discernable sensory deficit. No aphasia Psychiatric System: Conversation is rational Results - Labs CBC & BMP: 07/05/16 08:41 07/05/16 08:41 Lab Results: I have reviewed the past 24 hour labs - Diagnostic Findings Procedure: Chest x-ray: image reviewed by me, report reviewed by me
[2016-07-07] MEDS: ATORVASTATIN 40 MG TABLET PO SCH (20:52)
[2016-07-08] MEDS: methylPREDNISolone SOD SUC 40 MG/1 ML VIAL IV SCH ×3 (02:11→18:09)
[2016-07-08] MEDS: ALBUTEROL/IPRATROPIUM 3 ML NEB RESP TX SCH ×6 (03:15→23:52)
[2016-07-08] MEDS: MEROPENEM 1,000 MG in SODIUM CHLORIDE 0.9% 100 ML IV SCH ×2 (06:00→18:09)
--- NOTE | 2016-07-08 08:53 | Pulmonology Progress Note ---
Pulmonary - PN: Subj Interval history: Patient is a 56-year-old black man that apparently is a heavy smoker and drinker. He comes in with fever coughing and congestion and has considerable left lung pneumonia. He did well with a bronchoscopy and had no obstruction but a lot of secretions. Cultures have been negative. He is feeling much better but still has considerable consolidation in his left lung. He did walk around some yesterday and his breathing is much better. Exam (Progress Note) - Constitutional Vitals: Period Temp Pulse Resp BP Sys/Gongora Pulse Ox Last 24 Hr 97.2 F-98.8 F 78-109 16-20 121-150/69-86 96-100 Exam: General appearance: no distress, under weight, he looks chronically ill but looks comfortable now and feels better. He is more active today. - Head Head exam: Present: normal inspection, normocephalic - Eye Eye exam: Present: EOMI. Absent: scleral icterus Pupils: Present: CAMI - ENT ENT exam: Present: normal exam - Neck Neck exam: Present: normal inspection. Absent: lymphadenopathy, thyromegaly - Respiratory Respiratory exam: Present: He has coarse breath sounds but is moving air well in his lungs sound better. He still has bilateral rhonchi. - Cardiovascular Cardiovascular exam: Present: regular rate and rhythm, tachycardia. Absent: gallop, systolic murmur - GI/Abdominal GI/Abdominal exam: Present: normal bowel sounds, soft. Absent: distended, organomegaly, tenderness - Extremities Exam Extremities exam: Absent: calf tenderness, edema - Neurological Exam Neurological exam: Present: alert, oriented X3, CN II-XII intact - Psychiatric Psychiatric exam: Present: normal affect - Skin Skin exam: Present: warm, dry Results - Labs CBC & BMP: 07/05/16 08:41 07/05/16 08:41 Assessment and Plan (1) COPD (chronic obstructive pulmonary disease) Status: Acute Assessment and plan: The patient is a chronic smoker and looks like he has fairly significant COPD. Will continue with treatment. He is breathing better and needs to increase his activity. He looks like he can go and follow-up as an outpatient Current Visit: Yes (2) Septic shock Problem details: Likely pulmonary source. Responded to volume. Off pressors. Status: Resolved Assessment and plan: Patient has been getting fluids and antibiotics for his shock. He is hemodynamically stable at present. Current Visit: Yes (3) Anemia Status: Acute Assessment and plan: Patient's hematocrit is better at 29. Overall he is feeling better. Current Visit: Yes Qualifiers: Anemia type: iron deficiency (4) Acute on chronic renal failure Status: Resolved Assessment and plan: Patient's creatinine continues to improve and is down to 1.2 Current Visit: Yes (5) Pneumonia Status: Acute Assessment and plan: The patient has a left mid lung consolidation. He has some left hilar fullness also. His bronchoscope did not show any endobronchial lesions. Bronchial washings are negative so far. He still has considerable consolidation and will continue with antibiotics. He can probably go home on bronchodilators and antibiotics and will need a follow-up chest x-ray. It is not clear how compliant he will be. Overall he is reasonably stable now. Current Visit: Yes Qualifiers: Pneumonia type: due to unspecified organism Laterality: left (6) Alcohol abuse Status: Acute Assessment and plan: Patient will have to be watched for DTs. He is fairly stable so far Current Visit: Yes
[2016-07-08] MEDS: MULTIVITAMIN (CENTRUM) TABLET PO SCH (09:15)
[2016-07-08] MEDS: FOLIC ACID 1 MG TABLET PO SCH (09:15)
[2016-07-08] MEDS: THIAMINE 100 MG TABLET PO SCH (09:15)
[2016-07-08] MEDS: chlordiazePOXIDE 25 MG CAPSULE PO SCH ×3 (09:15→21:43)
[2016-07-08] MEDS: PANTOPRAZOLE 40 MG TABLET PO SCH ×2 (09:15→21:43)
[2016-07-08] MEDS: TAMSULOSIN 0.4 MG CAPSULE PO SCH (09:15)
[2016-07-08] MEDS ORDERED: POTASSIUM CHLORIDE 20 MEQ TABLET PO PRN (15:50)
--- NOTE | 2016-07-08 16:30 | Hospitalist Progress Note ---
Assessment and Plan - Time spent with patient Time spent with patient: Greater than 30 minutes (1) Urinary frequency Status: Acute Assessment and plan: We will check his bladder content of the patient has voided. Current Visit: Yes (2) COPD (chronic obstructive pulmonary disease) Status: Acute Assessment and plan: Stable. Current Visit: Yes (3) Pneumonia Status: Acute Assessment and plan: Continue antibiotics. Current Visit: Yes Qualifiers: Pneumonia type: due to unspecified organism Laterality: left (4) Alcohol abuse Status: Acute Assessment and plan: Continue current management. Current Visit: Yes Hospitalist: Subjective Interval history: Patient states he has been having issues urinating and would like his prostate checked. Describes frequent urination and nighttime awakening. Otherwise he states he is doing well. Exam - Constitutional Vitals: Period Temp Pulse Resp BP Sys/Gongora Pulse Ox Last 24 Hr 97.2 F-98.3 F 78-101 16-19 122-150/74-86 88-100 General appearance: no acute distress - Head Head exam: Present: normocephalic, atraumatic - Eye Eye exam: Present: EOMI Pupils: Present: CAMI - ENT ENT exam: Present: normal exam - Neck Neck exam: Present: normal inspection - Respiratory Respiratory exam: Present: clear to auscultation bilaterally. Absent: rhonchi, wheezes - Cardiovascular Cardiovascular exam: Present: regular rate and rhythm. Absent: gallop, rubs, systolic murmur - GI/Abdominal GI/Abdominal exam: Present: normal bowel sounds, soft. Absent: distended, firm , guarding, tenderness, rebound - Extremities Exam Extremities exam: Present: normal inspection. Absent: calf tenderness, edema Results - Labs CBC & BMP: 07/05/16 08:41 07/05/16 08:41 Lab Results: I have reviewed the past 24 hour labs
[2016-07-08] MEDS: ATORVASTATIN 40 MG TABLET PO SCH (21:43)
[2016-07-09] MEDS: methylPREDNISolone SOD SUC 40 MG/1 ML VIAL IV SCH ×3 (02:57→17:08)
[2016-07-09] MEDS: ALBUTEROL/IPRATROPIUM 3 ML NEB RESP TX SCH ×5 (03:43→19:23)
[2016-07-09] MEDS: MEROPENEM 1,000 MG in SODIUM CHLORIDE 0.9% 100 ML IV SCH ×2 (05:09→17:08)
[2016-07-09 05:17] LABS: Eosinophils # 0.1 10*3/uL (0.0-0.87); Eosinophils % 0.5 % (0.00-10.9); Hemoglobin 9.6 GM/DL (14.0-18.0); Immature Granulocytes % 0.6 %; Immature Granulocytes Absolute 0.06 #; Lymphocytes # 0.6 10*3/uL (1.4-4.0); Lymphocytes % 6.4 % (21.2-54.2); Mean Corpuscular HGB Conc 33.1 GM/DL (32-36); Mean Corpuscular Hemoglobin 30 PG (27-34); Mean Corpuscular Volume 91.2 FL (87-102); Mean Platelet Volume 10.8 FL (9.6-12.0); Monocytes # 0.5 10*3/uL (0.11-0.8); Monocytes % 5.3 % (1.7-12.7); Neutrophils # 8.4 10*3/uL (1.4-7.4); Neutrophils % 87.2 % (38.7-73.9); Platelet Count 283 T/CUMM (130-400); Red Blood Count 3.18 MC/CUMM (3.8-5.5); Red Cell Distribution Width 14.3 % (9.3-17.3); White Blood Count 9.6 T/CUMM (4-12)
[2016-07-09 05:45] LABS: Calcium 9.1 MG/DL (8.5-10.1); Magnesium 1.7 MG/DL (1.8-2.4); Osmolality,Calculated 279.7 MOS/KG (273-304); Potassium 4.2 MMOL/L (3.5-5.1)
[2016-07-09] MEDS: MAGNESIUM SULF RIDER 2 GM in PREMIX 1 EACH IV PRN (09:46)
[2016-07-09] MEDS: THIAMINE 100 MG TABLET PO SCH (09:47)
[2016-07-09] MEDS: chlordiazePOXIDE 25 MG CAPSULE PO SCH (09:47)
[2016-07-09] MEDS: PANTOPRAZOLE 40 MG TABLET PO SCH ×2 (09:47→20:14)
[2016-07-09] MEDS: TAMSULOSIN 0.4 MG CAPSULE PO SCH (09:47)
[2016-07-09] MEDS: MULTIVITAMIN (CENTRUM) TABLET PO SCH (09:47)
[2016-07-09] MEDS: FOLIC ACID 1 MG TABLET PO SCH (09:47)
--- NOTE | 2016-07-09 11:18 | Hospitalist Progress Note ---
Assessment and Plan - Time spent with patient Time spent with patient: Greater than 30 minutes (1) Urinary frequency Status: Acute Assessment and plan: We will check his bladder content of the patient has voided. Current Visit: Yes (2) COPD (chronic obstructive pulmonary disease) Status: Acute Assessment and plan: Stable. Current Visit: Yes (3) Pneumonia Status: Acute Assessment and plan: Continue antibiotics. Current Visit: Yes Qualifiers: Pneumonia type: due to unspecified organism Laterality: left (4) Alcohol abuse Status: Acute Assessment and plan: Continue current management. Current Visit: Yes Hospitalist: Subjective Interval history: No complaints, no overnight events. Exam - Constitutional Vitals: Period Temp Pulse Resp BP Sys/Gongora Pulse Ox Last 24 Hr 97.8 F-98.6 F 73-97 16-20 131-150/64-84 94-100 General appearance: no acute distress - Head Head exam: Present: normocephalic, atraumatic - Eye Eye exam: Present: EOMI Pupils: Present: ACMI - ENT ENT exam: Present: normal exam - Neck Neck exam: Present: normal inspection - Respiratory Respiratory exam: Present: clear to auscultation bilaterally. Absent: rhonchi, wheezes - Cardiovascular Cardiovascular exam: Present: regular rate and rhythm. Absent: gallop, rubs, systolic murmur - GI/Abdominal GI/Abdominal exam: Present: normal bowel sounds, soft. Absent: distended, firm , guarding, tenderness, rebound - Extremities Exam Extremities exam: Present: normal inspection. Absent: calf tenderness, edema Results - Labs CBC & BMP: 07/09/16 04:59 07/09/16 05:00 Lab Results: I have reviewed the past 24 hour labs
--- NOTE | 2016-07-09 11:20 | Pulmonology Progress Note ---
Pulmonary - PN: Subj Interval history: Is a 56-year-old male who drinks alcohol and smokes a lot. He was admitted with respiratory distress and he was found to have a left lung pneumonia. He is gradually improved. I am seeing for Dr. Grace who bronchoscoped and found no endobronchial lesions. So far all cultures have been negative. Patient has a residual peripheral infiltrate in his left upper lung and left lower lung. He has clinically improved. Dr. Grace's said he might be ready for discharge soon Lab. White count is 9687 segs 6 lymphs and 5 monos. H&H is 9.6/29.0. Platelets of 283,000. Electrolytes are normal. Creatinine is fallen from 1.50- 1.00 BUN is 25. Microbiology. No positive cultures Lab. Reviewed Medicines. Reviewed Physical exam. Vital signs. See below General. No apparent distress Neck. Symmetrical no meningismus Chest. Hyperinflated. Prolonged expiration Psychiatric. Oriented 3 Neurologic. Cranial nerves are intact with decreased hearing acuity. Patient moves all 4 extremities. Heart. No gallop Abdomen. Nondistended. Positive bowel sounds Extremities. Nothing to suggest deep venous thrombophlebitis The remainder the physical exam is noncontributory. Plan. 1. See above 2. Made no changes in the patient's Exam (Progress Note) - Constitutional Vitals: Period Temp Pulse Resp BP Sys/Gongora Pulse Ox Last 24 Hr 97.8 F-98.6 F 73-97 16-20 131-150/64-84 94-100 Results - Labs CBC & BMP: 07/09/16 04:59 07/09/16 05:00
[2016-07-09] MEDS: chlordiazePOXIDE 10 MG CAPSULE PO SCH ×3 (13:54→20:14)
[2016-07-09] MEDS: ATORVASTATIN 40 MG TABLET PO SCH (20:14)
[2016-07-10] MEDS: ALBUTEROL/IPRATROPIUM 3 ML NEB RESP TX SCH ×7 (00:09→23:46)
[2016-07-10] MEDS: methylPREDNISolone SOD SUC 40 MG/1 ML VIAL IV SCH ×3 (02:07→17:18)
[2016-07-10] MEDS: MEROPENEM 1,000 MG in SODIUM CHLORIDE 0.9% 100 ML IV SCH ×2 (05:59→17:18)
[2016-07-10 06:41] LABS: Basophils % 0.1 % (0.0-0.8); Eosinophils % 0.4 % (0.00-10.9); Hematocrit 28.3 VOL% (42.0-52.0); Hemoglobin 9.4 GM/DL (14.0-18.0); Immature Granulocytes % 0.7 %; Immature Granulocytes Absolute 0.06 #; Lymphocytes # 0.6 10*3/uL (1.4-4.0); Lymphocytes % 6.1 % (21.2-54.2); Mean Corpuscular HGB Conc 33.2 GM/DL (32-36); Mean Corpuscular Hemoglobin 30 PG (27-34); Mean Corpuscular Volume 90.7 FL (87-102); Monocytes # 0.4 10*3/uL (0.11-0.8); Monocytes % 4.2 % (1.7-12.7); Neutrophils # 8.1 10*3/uL (1.4-7.4); Neutrophils % 88.5 % (38.7-73.9); Platelet Count 291 T/CUMM (130-400); Red Blood Count 3.12 MC/CUMM (3.8-5.5); Red Cell Distribution Width 14.4 % (9.3-17.3); White Blood Count 9.2 T/CUMM (4-12)
[2016-07-10 07:27] LABS: Calcium 8.9 MG/DL (8.5-10.1); Osmolality,Calculated 279.7 MOS/KG (273-304); Potassium 4.4 MMOL/L (3.5-5.1)
[2016-07-10] MEDS: FINASTERIDE 5 MG TABLET PO SCH (08:42)
[2016-07-10] MEDS: MULTIVITAMIN (CENTRUM) TABLET PO SCH (08:42)
[2016-07-10] MEDS: FOLIC ACID 1 MG TABLET PO SCH (08:42)
[2016-07-10] MEDS: TAMSULOSIN 0.4 MG CAPSULE PO SCH (08:42)
[2016-07-10] MEDS: PANTOPRAZOLE 40 MG TABLET PO SCH ×2 (08:42→21:02)
[2016-07-10] MEDS: THIAMINE 100 MG TABLET PO SCH (08:42)
[2016-07-10] MEDS: chlordiazePOXIDE 10 MG CAPSULE PO SCH ×4 (10:01→21:02)
--- NOTE | 2016-07-10 10:45 | Pulmonology Progress Note ---
Pulmonary - PN: Subj Interval history: Is a 56-year-old male who drinks alcohol and smokes a lot. He was admitted with respiratory distress and he was found to have a left lung pneumonia. He is gradually improved. I am seeing for Dr. Grace who bronchoscoped and found no endobronchial lesions. So far all cultures have been negative. Patient has a residual peripheral infiltrate in his left upper lung and left lower lung. He has clinically improved. Dr. Grace's said he might be ready for discharge soon Lab. White count is 9687 segs 6 lymphs and 5 monos. H&H is 9.6/29.0. Platelets of 283,000. Electrolytes are normal. Creatinine is fallen from 1.50- 1.00 BUN is 25. Microbiology. No positive cultures Lab. Reviewed Medicines. Reviewed 07/10/2016. Patient is comfortable no shortness of breath. He is concerned about getting prostate test. I will defer to hospice hospitalist on this. Electrolytes normal. Creatinine to 1.0. CBC is stable white count is 9288.5 segs. There are no positive cultures. So far all bronchoscopy specimens have been negative. Labs been reviewed and medicines have been reviewed. I did not make any changes today. I have ordered a follow-up chest x-ray in a Physical exam. Vital signs. See below General. No apparent distress Neck. Symmetrical no meningismus Chest. Hyperinflated. Prolonged expiration Psychiatric. Oriented 3 Neurologic. Cranial nerves are intact with decreased hearing acuity. Patient moves all 4 extremities. Heart. No gallop Abdomen. Nondistended. Positive bowel sounds Extremities. Nothing to suggest deep venous thrombophlebitis The remainder the physical exam is noncontributory. Plan. 1. See above 2. Made no changes in the patient's 3. 07/10/2016. Chest x-ray tomorrow Exam (Progress Note) - Constitutional Vitals: Period Temp Pulse Resp BP Sys/Gongora Pulse Ox Last 24 Hr 97.9 F-98.8 F 70-121 14-20 120-145/69-87 96-100 Results - Labs CBC & BMP: 07/10/16 05:45 07/10/16 05:45
--- NOTE | 2016-07-10 11:23 | Hospitalist Progress Note ---
Assessment and Plan - Time spent with patient Time spent with patient: Greater than 30 minutes (1) Urinary frequency Status: Acute Assessment and plan: Bladder scan results are mixed. Will start finasteride. He will be referred to a urologist as an outpatient. Current Visit: Yes (2) COPD (chronic obstructive pulmonary disease) Status: Acute Assessment and plan: Stable. Current Visit: Yes (3) Pneumonia Status: Acute Assessment and plan: Continue antibiotics. Current Visit: Yes Qualifiers: Pneumonia type: due to unspecified organism Laterality: left (4) Alcohol abuse Status: Acute Assessment and plan: Continue current management. Current Visit: Yes Hospitalist: Subjective Interval history: No complaints, no overnight events. Exam - Constitutional Vitals: Period Temp Pulse Resp BP Sys/Gongora Pulse Ox Last 24 Hr 97.9 F-98.8 F 70-121 14-20 120-145/69-87 96-100 General appearance: no acute distress - Head Head exam: Present: normocephalic, atraumatic - Eye Eye exam: Present: EOMI Pupils: Present: CAMI - ENT ENT exam: Present: normal exam - Neck Neck exam: Present: normal inspection - Respiratory Respiratory exam: Present: clear to auscultation bilaterally. Absent: rhonchi, wheezes - Cardiovascular Cardiovascular exam: Present: regular rate and rhythm. Absent: gallop, rubs, systolic murmur - GI/Abdominal GI/Abdominal exam: Present: normal bowel sounds, soft. Absent: distended, firm , guarding, tenderness, rebound - Extremities Exam Extremities exam: Present: normal inspection. Absent: calf tenderness, edema Results - Labs CBC & BMP: 07/10/16 05:45 07/10/16 05:45 Lab Results: I have reviewed the past 24 hour labs
[2016-07-10] MEDS: ATORVASTATIN 40 MG TABLET PO SCH (21:02)
[2016-07-11] MEDS: methylPREDNISolone SOD SUC 40 MG/1 ML VIAL IV SCH ×2 (02:13→09:25)
[2016-07-11] MEDS: ALBUTEROL/IPRATROPIUM 3 ML NEB RESP TX SCH ×3 (03:58→11:17)
[2016-07-11] MEDS: MEROPENEM 1,000 MG in SODIUM CHLORIDE 0.9% 100 ML IV SCH (06:16)
[2016-07-11 07:05] LABS: Eosinophils # 0.1 10*3/uL (0.0-0.87); Eosinophils % 0.6 % (0.00-10.9); Hematocrit 33.7 VOL% (42.0-52.0); Hemoglobin 10.7 GM/DL (14.0-18.0); Immature Granulocytes % 0.3 %; Immature Granulocytes Absolute 0.03 #; Lymphocytes # 0.7 10*3/uL (1.4-4.0); Lymphocytes % 7.2 % (21.2-54.2); Mean Corpuscular HGB Conc 31.8 GM/DL (32-36); Mean Corpuscular Hemoglobin 30 PG (27-34); Mean Corpuscular Volume 94.9 FL (87-102); Monocytes # 0.4 10*3/uL (0.11-0.8); Neutrophils % 87.9 % (38.7-73.9); Platelet Count 302 T/CUMM (130-400); Red Blood Count 3.55 MC/CUMM (3.8-5.5); Red Cell Distribution Width 14.2 % (9.3-17.3); White Blood Count 9.1 T/CUMM (4-12)
--- NOTE | 2016-07-11 09:14 | XRay Report ---
XR chest 2V Date: 07/11/2016 4:00 AM History: Pneumonia Comparison: 07/07/2016 Technique: PA and lateral chest Findings: The heart is normal in size. Evidence of bullous emphysema with reduced parenchymal findings at the left lung base with small pleural effusions. Persistent dense pleural based density laterally in the left midlung zone. Stable mediastinum and osseous structures. Impression: Bullous emphysema with improving pneumonia at the left lung base with small pleural effusions. Follow-up chest x-ray is recommended to document clearing with persistent pleural-based density laterally in the left mid lung zone. PROCEDURE INTERPRETED AT [facility] DEPARTMENT OF RADIOLOGY Final Report Signed by: Dr. Kayleigh Colón
[2016-07-11] MEDS: MULTIVITAMIN (CENTRUM) TABLET PO SCH (09:25)
[2016-07-11] MEDS: FINASTERIDE 5 MG TABLET PO SCH (09:25)
[2016-07-11] MEDS: FOLIC ACID 1 MG TABLET PO SCH (09:25)
[2016-07-11] MEDS: PANTOPRAZOLE 40 MG TABLET PO SCH (09:25)
[2016-07-11] MEDS: chlordiazePOXIDE 10 MG CAPSULE PO SCH (09:25)
[2016-07-11] MEDS: THIAMINE 100 MG TABLET PO SCH (09:25)
[2016-07-11] MEDS: TAMSULOSIN 0.4 MG CAPSULE PO SCH (09:25)
[2016-07-11] MEDS: MAGNESIUM SULF RIDER 2 GM in PREMIX 1 EACH IV PRN (09:26)
--- NOTE | 2016-07-11 09:55 | Discharge Summary ---
Hospital Course - Hospital Course Hospital Course: Mr. Sierra was admitted with septic shock secondary to pneumonia with acute encephalopathy. He was placed in the intensive care unit. He is known to be dependent on alcohol and placed on Librium for potential alcohol withdrawal. He was initiated on antibiotics for his pneumonia and pulmonary was consulted. Patient had a bronchoscopy which revealed significant mucus in the left lung and washings returned negative. Patient continued treatment of antibiotics. Tolerated this very well and sepsis resolved. He had complaints of increased urinary frequency and sensation of poor bladder emptying post void. Bladder scans revealed about 2-300 cc of fluid post void. He was initiated on Flomax and finasteride and will follow up with urology as an outpatient. He was instructed on alcohol cessation and not to mix with Librium. By discharge he had met maximum benefit of hospitalization. - Time spent with patient Time with patient DS: Greater than 30 minutes Diagnosis - Discharge Diagnosis (1) Urinary frequency Status: Acute (2) COPD (chronic obstructive pulmonary disease) Status: Acute (3) Pneumonia Status: Acute (4) Alcohol abuse Status: Acute Discharge Plan - Discharge Data Disposition: Disch To Home/Self Care Condition at Discharge: Stable Discharge Diet: advance to your usual diet Activity: resume usual activities as tolerated Hygiene: no restrictions Contact your physician if you experience:: fever over 101, Nausea/Vomiting, Shortness of breath - Discharge Medications New Finasteride [Proscar] 5 mg PO DAILY #30 tablet Tamsulosin [Flomax] 0.4 mg PO DAILY #30 capsule chlordiazePOXIDE [Librium] 10 mg PO QID #12 capsule predniSONE TAB [PredniSONE] 10 mg PO DAILY #30 tablet Atorvastatin [Lipitor] 40 mg PO BEDTIME #30 tablet Levofloxacin Tab [Levaquin Tab] 750 mg PO DAILY #10 tablet Clindamycin HCl [Clindamycin Cap] 600 mg PO Q6HR #40 capsule - Follow Up or Referral - Forms/Instructions Exam - Constitutional Vitals: Period Temp Pulse Resp BP Sys/Gongora Pulse Ox Last 24 Hr 97.5 F-99.0 F 60-100 14-20 124-152/67-88 90-100 General appearance: normal weight, no acute distress - Head Head exam: Present: normal inspection, normocephalic, atraumatic - Eye Eye exam: Present: EOMI Pupils: Present: CAMI - ENT ENT exam: Present: normal exam - Neck Neck exam: Present: normal inspection - Respiratory Respiratory exam: Present: clear to auscultation bilaterally. Absent: accessory muscle use, prolonged expiratory phase, wheezes - Cardiovascular Cardiovascular exam: Present: regular rate and rhythm. Absent: bradycardia, irregular rhythm, systolic murmur - GI/Abdominal GI/Abdominal exam: Present: normal bowel sounds. Absent: ascites, distended, hypoactive bowel sounds, tenderness - Extremities Exam Extremities exam: Present: normal inspection Discharge Results Procedures and tests throughout hospitalization: Pending Orders 07/05/16 07:38 AFB Culture/Smears Routine Fungal Culture w/ Prep Routine 07/05/16 08:02 Cytology Request Routine 07/06/16 07:16 C. Diff Toxins A & B Stat Occult Blood, Stool Stat Labs on day of discharge: Labs from last 24 hours 07/11/16 06:12 WBC 9.1 RBC 3.55 L Hgb 10.7 L Hct 33.7 L MCV 94.9 MCH 30 MCHC 31.8 L RDW 14.2 Plt Count 302 MPV 11.0 Neut % (Auto) 87.9 H Lymph % (Auto) 7.2 L Elbert % (Auto) 4.0 Eos % (Auto) 0.6 Baso % (Auto) 0.0 Neut # (Auto) 8.0 H Lymph # (Auto) 0.7 L Elbert # (Auto) 0.4 Eos # (Auto) 0.1 Baso # (Auto) 0.0 Immature Gran % 0.3 Nucleated RBC % 0.0 Immature Gran # 0.03 Nucleated RBCs # 0.00 DS: Provider Date of admission: 07/01/16 17:06 Primary care physician: . No PCP Attending physician on admission: Samuel Parra MD Consults: 07/01/16 18:12 Consult to Physician [CONS] Routine Comment: acute renal failure Consulting Provider: Tramaine Macias Consulting Provider Notified: Yes Person Notified: Dr. Macias Date Notified: 07/02/16 Time Notified: 08:30 Consult Notification Comment: Notified Dr. Macias in person of consult. Seen by . 07/01/16 19:55 Consult to Pharmacy [CONS] Routine Reason for Pharmacy Consult: Adjust Meds Renal Funct 07/01/16 20:03 Consult to Dietitian [CONS] Routine Reason for Dietitian: Diet Recommendations 07/02/16 07:59 Consult to Physician [CONS] Routine Comment: pneumonia Consulting Provider: Alphonse Grace Consulting Provider Notified: Yes Person Notified: Dr. Grace Date Notified: 07/02/16 Time Notified: 08:05 Consult Notification Comment: Notified Dr. Grace in person of consult, he stated "Ok, Thank you. 07/06/16 08:35 Consult to Physical Therapy [CONS] Routine Reason for Physical Therapy: Evaluate and Treat 07/06/16 08:51 Consult to Physical Therapy [CONS] Routine Reason for Physical Therapy: Ambulation 07/11/16 08:07 Consult to Case Mgmt/Social Srvs [CONS] Routine Reason for Case Mgmt/Social Srvs: Discharge Planning Discharging clinician: Meagan Rodriguez MD Expected date of discharge: 07/11/16
--- NOTE | 2016-07-11 10:08 | Pulmonology Progress Note ---
Pulmonary - PN: Subj Interval history: Patient is a 56-year-old black man that apparently is a heavy smoker and drinker. He comes in with fever coughing and congestion and has considerable left lung pneumonia. He did well with a bronchoscopy and had no obstruction but a lot of secretions. Cultures have been negative. He says he is feeling much better and his breathing is better. He is not coughing as much. His chest x-ray still shows some peripheral consolidation in the left lung but the area is getting smaller. He can probably go and take oral antibiotics and follow-up as an outpatient. Exam (Progress Note) - Constitutional Vitals: Period Temp Pulse Resp BP Sys/Gongora Pulse Ox Last 24 Hr 97.5 F-99.0 F 60-100 14-20 124-152/67-88 90-100 Exam: General appearance: no distress, under weight, he looks chronically ill but looks comfortable now and feels better. He is more active today. - Head Head exam: Present: normal inspection, normocephalic - Eye Eye exam: Present: EOMI. Absent: scleral icterus Pupils: Present: CAMI - ENT ENT exam: Present: normal exam - Neck Neck exam: Present: normal inspection. Absent: lymphadenopathy, thyromegaly - Respiratory Respiratory exam: Present: He has coarse breath sounds but his lungs do sound much better. - Cardiovascular Cardiovascular exam: Present: regular rate and rhythm, tachycardia. Absent: gallop, systolic murmur - GI/Abdominal GI/Abdominal exam: Present: normal bowel sounds, soft. Absent: distended, organomegaly, tenderness - Extremities Exam Extremities exam: Absent: calf tenderness, edema - Neurological Exam Neurological exam: Present: alert, oriented X3, CN II-XII intact - Psychiatric Psychiatric exam: Present: normal affect - Skin Skin exam: Present: warm, dry Results - Labs CBC & BMP: 07/11/16 06:12 07/10/16 05:45 Assessment and Plan (1) COPD (chronic obstructive pulmonary disease) Status: Acute Assessment and plan: The patient is a chronic smoker and looks like he has fairly significant COPD. He is breathing much better and tolerating medicines okay. Current Visit: Yes (2) Septic shock Problem details: Likely pulmonary source. Responded to volume. Off pressors. Status: Resolved Assessment and plan: Patient is much better and his vital signs are stable now. Current Visit: Yes (3) Anemia Status: Acute Assessment and plan: Patient's hematocrit is better at 33. Overall he is feeling better. Current Visit: Yes (4) Acute on chronic renal failure Status: Resolved Assessment and plan: Patient's creatinine continues to improve and is down to 1.0 Current Visit: Yes (5) Pneumonia Status: Acute Assessment and plan: The patient has a peripheral left midlung pneumonia that is slowly improving. His x-ray shows the area in question to be getting smaller but still present. This will need follow-up as an outpatient. He can probably go home on oral antibiotics. Current Visit: Yes (6) Alcohol abuse Status: Acute Assessment and plan: Patient will have to be watched for DTs. He is fairly stable so far Current Visit: Yes
[2016-07-11 12:08] VITALS: BP 137/81
--- NOTE | 2016-07-18 07:12 | Physician Query Form ---
CLICK EDIT DOCUMENT TO SELECT QUERY ANSWER --> OK --> SIGN Katrina Dyer RN, CCDS Certified Clinical [employer] W) [phone] (f) [phone] [email or web address]: Make your selection(s) from the choices in EACH section by typing an "x" and enter comments in the comment section. Please use your independent medical judgment in providing your response. This request does not imply that any particular answer is desired or expected. CLINICAL INDICATORS: (Providers should not edit this section) "There is very severe mucus plugging bilaterally. There are thick plugs were washed and cleared with the bronchoscope." Can you please clarify the areas of the lungs where the plugs were removed? Based on the above, could you clarify the location and type biopsy, if done? TYPE BIOPSY: ( ) Transbronchial needle aspiration ( ) Cell or tissue sample ( x) Fluid sample ( ) Other, please specify ( ) Clinically unable to determine BRONCHIAL: (x ) Bilateral Bronchi, all lobes ( ) Left Main Bronchus ( ) Right Main Bronchus ( ) Left Lower Lobe Bronchus ( ) Left Upper Lobe Bronchus ( ) Right Lower Lobe Bronchus ( ) Right Middle Lobe Bronchus ( ) Right Upper Lobe Bronchus ( ) Bronchial Lingula LUNG: (x ) Bilateral Lungs, all lobes ( ) Left Lung ( ) Right Lung ( ) Left Lower Lobe Lung ( ) Left Upper Lobe Lung ( ) Right Lower Lobe Lung ( ) Right Middle Lobe Lung ( ) Right Upper Lobe Lung ( ) Lung Lingula ( ) Other, please specify: ( ) Clinically unable to determine COMMENTS: Use of terms such as suspected, likely, or probable (associated with a specific diagnosis that is being evaluated, monitored, or treated as if it exists) are acceptable and can be restated in the discharge summary if not ruled out. MTDD
== END 2016-07-11 12:30 | disposition home health service (06) | DRG 853 ==
LOC: N.ED 15:23 → N.EDINP 16:29 → SUATTDRO 17:06 → N.ICU 19:35 → N.5E 07-04 14:28
PROVIDERS: ADMIT Family Medicine; ATTEND Internal Medicine

== ENCOUNTER 2017-11-03 17:24 | Inpatient (IN) ==
[~2017-11-03 17:24] MED LIST: ADENOSINE 6 MG/2 ML VIAL IV ONE
[2017-11-03] MEDS ORDERED: LORazepam 1 MG TABLET PO PRN (20:42)
[2017-11-03 21:51] LABS: Basophils # 0.1 10*3/uL (0.0-0.2); Basophils % 0.8 % (0.0-0.8); Hemoglobin 11.3 GM/DL (14.0-18.0); Immature Granulocytes % 8.6 %; Immature Granulocytes Absolute 0.64 #; Lymphocytes # 0.4 10*3/uL (1.4-4.0); Lymphocytes % 4.8 % (21.2-54.2); Mean Corpuscular HGB Conc 35.3 GM/DL (32-36); Mean Corpuscular Hemoglobin 32 PG (27-34); Mean Corpuscular Volume 91.2 FL (87-102); Mean Platelet Volume 11.2 FL (9.6-12.0); Monocytes # 0.3 10*3/uL (0.11-0.8); Monocytes % 4.3 % (1.7-12.7); Neutrophils # 6.1 10*3/uL (1.4-7.4); Neutrophils % 81.5 % (38.7-73.9); Platelet Count 84 T/CUMM (130-400); Red Blood Count 3.51 MC/CUMM (3.8-5.5); Red Cell Distribution Width 14.1 % (9.3-17.3); White Blood Count 7.5 T/CUMM (4-12)
[2017-11-03 22:11] LABS: Band Neutrophils 20 % (0-10); Calcium 8.1 MG/DL (8.5-10.1); Lymphocytes 13 % (20-55); Nucleated Red Blood Cells 1 (0-5); Osmolality,Calculated 270.4 MOS/KG (273-304); Platelet Estimate Decreased; Potassium 3.5 MMOL/L (3.5-5.1); Segmented Neutrophils 59 % (50-85); Total Cells Counted 100
[2017-11-03 22:17] LABS: Lactic Acid 2.9 MMOL/L (0.4-2.0)
[2017-11-03] MEDS: PIPERACILLIN/TAZOBACTAM 3,375 MG in SODIUM CHLORIDE 0.9% 100 ML IV SCH (22:18)
[2017-11-03] MEDS ORDERED: MAGNESIUM SULFATE 1 GM/2 ML VIAL IM ONE (22:36)
[2017-11-03] MEDS ORDERED: SODIUM CHLORIDE 0.9% 500 ML IV ONE (22:48)
[2017-11-03] MEDS ORDERED: MAGNESIUM SULF RIDER 4 GM in PREMIX 1 EACH IV ONE (23:00)
[2017-11-03] MEDS ORDERED: ALBUTEROL 1.25 MG/3 ML NEB RESP TX ONE (23:30)
[2017-11-03] MEDS ORDERED: ADENOSINE 6 MG/2 ML VIAL ONE ×2 (23:52→23:56)
[2017-11-04] MEDS ORDERED: LEVALBUTEROL 1.25 MG/3 ML NEB RESP TX ONE
[2017-11-04] MEDS ORDERED: MORPHINE 4 MG/1 ML VIAL ONE (00:04)
[2017-11-04] MEDS ORDERED: ACETAMINOPHEN 650 MG SUPP RECTAL ONE ×2 (00:06→00:30)
[2017-11-04] MEDS ORDERED: SODIUM CHLORIDE 0.9% 1,000 ML IV SCH (00:10)
[2017-11-04] MEDS ORDERED: SODIUM CHLORIDE 0.9% 500 ML IV ONE (00:10)
[2017-11-04] MEDS ORDERED: ADENOSINE 6 MG/2 ML VIAL ONE ×3 (00:11→00:13)
[2017-11-04] MEDS ORDERED: MORPHINE 4 MG/1 ML VIAL IV ONE (00:30)
[2017-11-04] MEDS ORDERED: METOPROLOL TARTRATE 5 MG/5 ML VIAL IV ONE (00:30)
[2017-11-04] MEDS ORDERED: ADENOSINE 6 MG/2 ML VIAL IV ONE ×2 (00:30→01:00)
[2017-11-04] MEDS: VANCOMYCIN INJ 1,000 MG in SODIUM CHLORIDE 0.9% 250 ML IV SCH ×2 (00:57→22:50)
[2017-11-04] MEDS ORDERED: ALBUTEROL 1.25 MG/3 ML NEB RESP TX SCH (01:00)
[2017-11-04] MEDS ORDERED: MORPHINE 4 MG/1 ML VIAL IV PRN (01:15)
[2017-11-04 01:26] LABS: Apearance,Urine CLEAR (Clear); Bilirubin,Urine Negative (Negative); Blood, Urine Small mg/dL (Negative); Glucose,Urine (UA) Negative (Negative); Ketones,Urine Negative (Negative); Nitrite,Urine Negative (Negative); Protein,Urine 100 MG/DL; RBC,Urine <1 /HPF (0-4); Squamous Epithelial Cell,Urine Occasional /HPF (0-10); Urine Color Yellow (Yellow); Urine Specific Gravity 1.013 (1.001-1.035); Urine Urobilinogen < 2.0 EU/DL (0.2-1.0); WBC,Urine 1 /HPF (0-6)
[2017-11-04] MEDS ORDERED: METOPROLOL TARTRATE 25 MG TABLET PO ONE (02:00)
[2017-11-04 04:26] LABS: Basophils % 0.4 % (0.0-0.8); Hematocrit 28.3 VOL% (42.0-52.0); Hemoglobin 9.7 GM/DL (14.0-18.0); Immature Granulocytes % 14.1 %; Immature Granulocytes Absolute 0.74 #; Lymphocytes # 0.3 10*3/uL (1.4-4.0); Lymphocytes % 5.7 % (21.2-54.2); Mean Corpuscular HGB Conc 34.3 GM/DL (32-36); Mean Corpuscular Hemoglobin 32 PG (27-34); Mean Corpuscular Volume 94.3 FL (87-102); Mean Platelet Volume 12.2 FL (9.6-12.0); Monocytes # 0.1 10*3/uL (0.11-0.8); Monocytes % 2.7 % (1.7-12.7); Neutrophils % 77.1 % (38.7-73.9); Platelet Count 75 T/CUMM (130-400); Red Cell Distribution Width 13.9 % (9.3-17.3); White Blood Count 5.2 T/CUMM (4-12)
[2017-11-04 04:34] LABS: INR 1.1; PT Patient Result 11.4 SECS; Partial Thromboplastin Time 32.2 SECS (0-40)
[2017-11-04 04:57] LABS: Band Neutrophils 3 % (0-10); Lymphocytes 14 % (20-55); Platelet Estimate Decreased; Segmented Neutrophils 81 % (50-85); Total Cells Counted 100
[2017-11-04 04:58] LABS: Lactic Acid 2.3 MMOL/L (0.4-2.0)
[2017-11-04 05:01] LABS: Albumin 2.2 G/DL (3.4-5.0); Bilirubin,Total 0.7 MG/DL (0.2-1.0); Calcium 7.5 MG/DL (8.5-10.1); Osmolality,Calculated 271.1 MOS/KG (273-304); Potassium 3.3 MMOL/L (3.5-5.1)
[2017-11-04 05:05] LABS: % Iron Saturation 5.1 % (18-50); Ferritin 1698.5 ng/ml (26-388)
[2017-11-04 05:12] LABS: Folate 4.7 NG/ML (5.4-24.0); Vitamin B12 453 PG/ML (211-911)
[2017-11-04] MEDS: PIPERACILLIN/TAZOBACTAM 3,375 MG in SODIUM CHLORIDE 0.9% 100 ML IV SCH ×3 (05:27→20:25)
[2017-11-04] MEDS: ACETAMINOPHEN 500 MG TABLET PO PRN ×3 (07:18→19:24)
[2017-11-04 07:35] LABS: Sedimentation Rate-Westergren 92 MM/HR (0-20)
[2017-11-04] MEDS ORDERED: FUROSEMIDE 40 MG/4 ML VIAL IV SCH (08:00)
[2017-11-04] MEDS: PANTOPRAZOLE 40 MG TABLET PO SCH (08:45)
[2017-11-04] MEDS: SODIUM CHLORIDE 0.9% 1,000 ML IV SCH ×3 (10:00→23:27)
[2017-11-04] MEDS: POTASSIUM CHLORIDE 20 MEQ TABLET PO SCH ×3 (10:03→17:57)
[2017-11-04] MEDS: LEVOFLOXACIN INJ 500 MG in PREMIX 1 EACH IV SCH (10:05)
[2017-11-04] MEDS ORDERED: ALBUTEROL 0.63 MG/3 ML NEB RESP TX PRN (15:00)
[2017-11-05] MEDS: ACETAMINOPHEN 500 MG TABLET PO PRN (03:57)
[2017-11-05] MEDS: PIPERACILLIN/TAZOBACTAM 3,375 MG in SODIUM CHLORIDE 0.9% 100 ML IV SCH ×3 (04:00→20:56)
[2017-11-05] MEDS ORDERED: METOPROLOL TARTRATE 5 MG/5 ML VIAL IV ONE ×4 (04:27→19:00)
[2017-11-05 05:25] LABS: Basophils % 0.6 % (0.0-0.8); Eosinophils # 0.1 10*3/uL (0.0-0.87); Eosinophils % 0.7 % (0.00-10.9); Hematocrit 26.1 VOL% (42.0-52.0); Hemoglobin 9.1 GM/DL (14.0-18.0); Immature Granulocytes % 0.9 %; Immature Granulocytes Absolute 0.06 #; Lymphocytes # 0.3 10*3/uL (1.4-4.0); Lymphocytes % 4.1 % (21.2-54.2); Mean Corpuscular HGB Conc 34.9 GM/DL (32-36); Mean Corpuscular Hemoglobin 32 PG (27-34); Mean Corpuscular Volume 92.2 FL (87-102); Mean Platelet Volume 12.6 FL (9.6-12.0); Monocytes # 0.3 10*3/uL (0.11-0.8); Monocytes % 4.8 % (1.7-12.7); Neutrophils # 6.3 10*3/uL (1.4-7.4); Neutrophils % 88.9 % (38.7-73.9); Platelet Count 73 T/CUMM (130-400); Red Blood Count 2.83 MC/CUMM (3.8-5.5); Red Cell Distribution Width 13.8 % (9.3-17.3)
[2017-11-05] MEDS: SODIUM CHLORIDE 0.9% 1,000 ML IV SCH ×3 (05:30→16:51)
[2017-11-05 05:39] LABS: Calcium 8.1 MG/DL (8.5-10.1); Osmolality,Calculated 264.5 MOS/KG (273-304); Potassium 3.8 MMOL/L (3.5-5.1)
[2017-11-05 06:07] LABS: Band Neutrophils 2 % (0-10); Lymphocytes 3 % (20-55); Segmented Neutrophils 90 % (50-85); Total Cells Counted 100
[2017-11-05 06:11] LABS: Anisocytosis 1+; Platelet Estimate Decreased
[2017-11-05] MEDS ORDERED: MAGNESIUM SULF RIDER 4 GM in PREMIX 1 EACH IV ONE (08:33)
[2017-11-05] MEDS: SODIUM BICARBONATE 650 MG TABLET PO SCH ×3 (09:00→20:56)
[2017-11-05] MEDS: LEVOFLOXACIN INJ 500 MG in PREMIX 1 EACH IV SCH (09:00)
[2017-11-05] MEDS: PANTOPRAZOLE 40 MG TABLET PO SCH (09:00)
[2017-11-05] MEDS: DILTIAZEM 30 MG TABLET PO SCH ×2 (12:54→17:05)
[2017-11-05] MEDS ORDERED: LORazepam 2 MG/1 ML VIAL ONE (19:42)
[2017-11-05] MEDS ORDERED: FUROSEMIDE 40 MG/4 ML VIAL ONE (19:42)
[2017-11-05] MEDS ORDERED: LEVALBUTEROL 1.25 MG/3 ML NEB RESP TX PRN (19:54)
[2017-11-05] MEDS ORDERED: FUROSEMIDE 40 MG/4 ML VIAL IV ONE (20:00)
[2017-11-05] MEDS ORDERED: chlordiazePOXIDE 25 MG CAPSULE PO ONE (20:00)
[2017-11-05 20:12] LABS: ABG Base Excess -7.6 MMOL/L (-2.5-2.5); ABG Oxygen Saturation 85.2 % (95-100); ABG PCO2 29.6 MM HG (35-48); ABG PH 7.362 (7.35-7.45); ABG TCO2 15.5 MMOL/L (23-27); Allen Test Positive; Pt O2 Delivery Device Venturi Mask
[2017-11-05] MEDS: LORazepam 2 MG/1 ML VIAL IV PRN (20:12)
[2017-11-06] MEDS: VANCOMYCIN INJ 1,000 MG in SODIUM CHLORIDE 0.9% 250 ML IV SCH ×3 (00:30→21:22)
[2017-11-06] MEDS: DILTIAZEM 30 MG TABLET PO SCH ×4 (01:05→19:20)
[2017-11-06] MEDS: SODIUM CHLORIDE 0.9% 1,000 ML IV SCH (03:13)
[2017-11-06 03:52] LABS: Basophils % 0.3 % (0.0-0.8); Eosinophils % 0.3 % (0.00-10.9); Hematocrit 21.8 VOL% (42.0-52.0); Hemoglobin 7.5 GM/DL (14.0-18.0); Immature Granulocytes Absolute 0.06 #; Lymphocytes # 0.4 10*3/uL (1.4-4.0); Lymphocytes % 6.3 % (21.2-54.2); Mean Corpuscular HGB Conc 34.4 GM/DL (32-36); Mean Corpuscular Hemoglobin 32 PG (27-34); Mean Corpuscular Volume 93.2 FL (87-102); Mean Platelet Volume 12.1 FL (9.6-12.0); Monocytes # 0.8 10*3/uL (0.11-0.8); Monocytes % 13.7 % (1.7-12.7); Neutrophils # 4.8 10*3/uL (1.4-7.4); Neutrophils % 78.4 % (38.7-73.9); Platelet Count 73 T/CUMM (130-400); Red Blood Count 2.34 MC/CUMM (3.8-5.5); Red Cell Distribution Width 14.2 % (9.3-17.3); White Blood Count 6.2 T/CUMM (4-12)
[2017-11-06 04:17] LABS: Atypical Lymphocytes Few; Band Neutrophils 3 % (0-10); Lymphocytes 15 % (20-55); Platelet Estimate Decreased; Segmented Neutrophils 76 % (50-85); Total Cells Counted 100
[2017-11-06 04:27] LABS: Calcium 7.7 MG/DL (8.5-10.1); Osmolality,Calculated 272.1 MOS/KG (273-304); Potassium 3.2 MMOL/L (3.5-5.1)
[2017-11-06] MEDS: LORazepam 2 MG/1 ML VIAL IV PRN ×2 (04:28→21:17)
[2017-11-06] MEDS: PIPERACILLIN/TAZOBACTAM 3,375 MG in SODIUM CHLORIDE 0.9% 100 ML IV SCH ×3 (04:28→21:23)
[2017-11-06] MEDS ORDERED: MAGNESIUM SULF RIDER 4 GM in PREMIX 1 EACH IV PRN (04:44)
[2017-11-06] MEDS: MAGNESIUM SULF RIDER 2 GM in PREMIX 1 EACH IV PRN (05:13)
[2017-11-06] MEDS: POTASSIUM CHLORIDE 20 MEQ TABLET PO PRN ×2 (05:13→06:51)
[2017-11-06 09:03] LABS: Hemoglobin A1 (Alkaline) 96.7 % (96.5-98.5); Hemoglobin A2 (Alkaline) 3.3 % (1.5-3.5)
[2017-11-06] MEDS: NICOTINE 21 MG/24 HR PATCH TRANSDERM SCH (09:15)
[2017-11-06] MEDS: LEVOFLOXACIN INJ 500 MG in PREMIX 1 EACH IV SCH (09:27)
[2017-11-06] MEDS ORDERED: LACTATED RINGERS 1,000 ML IV ONE (12:49)
[2017-11-06] MEDS ORDERED: methylPREDNISolone SOD SUC 125 MG/2 ML VIAL IV ONE (12:59)
[2017-11-06] MEDS: SODIUM BICARBONATE 650 MG TABLET PO SCH ×3 (13:59→21:06)
[2017-11-06] MEDS: PANTOPRAZOLE 40 MG TABLET PO SCH (14:00)
[2017-11-06] MEDS: POTASSIUM CHLORIDE INJ 20 MEQ in LACTATED RINGERS 1,000 ML IV SCH (14:23)
[2017-11-06] MEDS: ALBUTEROL/IPRATROPIUM 3 ML NEB RESP TX SCH ×2 (14:46→19:40)
[2017-11-06] MEDS: methylPREDNISolone SOD SUC 125 MG/2 ML VIAL IV SCH (21:19)
[2017-11-07] MEDS: LORazepam 2 MG/1 ML VIAL IV PRN ×3 (00:53→17:41)
[2017-11-07] MEDS: DILTIAZEM 30 MG TABLET PO SCH ×4 (00:58→20:57)
[2017-11-07] MEDS: POTASSIUM CHLORIDE INJ 20 MEQ in LACTATED RINGERS 1,000 ML IV SCH (01:00)
[2017-11-07] MEDS: ALBUTEROL/IPRATROPIUM 3 ML NEB RESP TX SCH ×4 (01:00→19:02)
[2017-11-07 04:47] LABS: Basophils % 0.2 % (0.0-0.8); Hematocrit 22.8 VOL% (42.0-52.0); Hemoglobin 7.7 GM/DL (14.0-18.0); Immature Granulocytes % 1.7 %; Immature Granulocytes Absolute 0.11 #; Lymphocytes # 0.3 10*3/uL (1.4-4.0); Lymphocytes % 4.7 % (21.2-54.2); Mean Corpuscular HGB Conc 33.8 GM/DL (32-36); Mean Corpuscular Hemoglobin 33 PG (27-34); Mean Platelet Volume 12.6 FL (9.6-12.0); Monocytes # 0.5 10*3/uL (0.11-0.8); Monocytes % 7.6 % (1.7-12.7); Neutrophils # 5.5 10*3/uL (1.4-7.4); Neutrophils % 85.8 % (38.7-73.9); Platelet Count 85 T/CUMM (130-400); Red Blood Count 2.35 MC/CUMM (3.8-5.5); Red Cell Distribution Width 14.4 % (9.3-17.3); White Blood Count 6.4 T/CUMM (4-12)
[2017-11-07] MEDS: methylPREDNISolone SOD SUC 125 MG/2 ML VIAL IV SCH ×3 (04:58→23:06)
[2017-11-07] MEDS: PIPERACILLIN/TAZOBACTAM 3,375 MG in SODIUM CHLORIDE 0.9% 100 ML IV SCH ×3 (04:58→23:41)
[2017-11-07 05:04] LABS: Albumin 1.8 G/DL (3.4-5.0); Bilirubin,Total 1.2 MG/DL (0.2-1.0); Calcium 8.5 MG/DL (8.5-10.1); Osmolality,Calculated 279.7 MOS/KG (273-304); Potassium 4.4 MMOL/L (3.5-5.1); Total Protein 6.6 G/DL (6.4-8.3)
[2017-11-07 05:17] LABS: Band Neutrophils 1 % (0-10); Lymphocytes 5 % (20-55); Nucleated Red Blood Cells 1 (0-5); Platelet Estimate Decreased; Segmented Neutrophils 85 % (50-85); Total Cells Counted 100
[2017-11-07 05:18] LABS: Hypochromasia 1+
[2017-11-07] MEDS: MAGNESIUM SULF RIDER 2 GM in PREMIX 1 EACH IV PRN (06:30)
[2017-11-07] MEDS ORDERED: ZINC OXIDE PASTE 113 GM TUBE TOP PRN (10:23)
[2017-11-07] MEDS: NICOTINE 21 MG/24 HR PATCH TRANSDERM SCH (10:44)
[2017-11-07] MEDS: VANCOMYCIN INJ 1,000 MG in SODIUM CHLORIDE 0.9% 250 ML IV SCH ×2 (11:12→22:32)
[2017-11-07] MEDS: LEVOFLOXACIN INJ 500 MG in PREMIX 1 EACH IV SCH (12:00)
[2017-11-07] MEDS: SODIUM BICARBONATE 650 MG TABLET PO SCH ×3 (14:51→20:57)
[2017-11-07] MEDS: PANTOPRAZOLE 40 MG TABLET PO SCH (14:52)
[2017-11-07] MEDS ORDERED: SODIUM CHLORIDE 0.9% 1,000 ML IV PRN (15:43)
[2017-11-07] MEDS ORDERED: LORazepam 2 MG/1 ML VIAL IV ONE (17:05)
[2017-11-08] MEDS: ALBUTEROL/IPRATROPIUM 3 ML NEB RESP TX SCH ×4 (00:47→20:42)
[2017-11-08] MEDS: DILTIAZEM 30 MG TABLET PO SCH ×4 (02:25→20:04)
[2017-11-08] MEDS: LORazepam 2 MG/1 ML VIAL IV PRN (02:28)
[2017-11-08 04:53] LABS: Basophils % 0.3 % (0.0-0.8); Hematocrit 28.5 VOL% (42.0-52.0); Hemoglobin 9.5 GM/DL (14.0-18.0); Immature Granulocytes % 1.6 %; Immature Granulocytes Absolute 0.17 #; Lymphocytes # 0.5 10*3/uL (1.4-4.0); Lymphocytes % 4.6 % (21.2-54.2); Mean Corpuscular HGB Conc 33.3 GM/DL (32-36); Mean Corpuscular Hemoglobin 31 PG (27-34); Mean Corpuscular Volume 93.1 FL (87-102); Mean Platelet Volume 12.6 FL (9.6-12.0); Monocytes # 0.8 10*3/uL (0.11-0.8); Monocytes % 6.9 % (1.7-12.7); Neutrophils # 9.5 10*3/uL (1.4-7.4); Neutrophils % 86.6 % (38.7-73.9); Platelet Count 114 T/CUMM (130-400); Red Blood Count 3.06 MC/CUMM (3.8-5.5); Red Cell Distribution Width 14.8 % (9.3-17.3); White Blood Count 10.9 T/CUMM (4-12)
[2017-11-08 05:06] LABS: Osmolality,Calculated 291.1 MOS/KG (273-304); Potassium 3.6 MMOL/L (3.5-5.1)
[2017-11-08 05:40] LABS: Hypochromasia 1+; Lymphocytes 3 % (20-55); Nucleated Red Blood Cells 1 (0-5); Platelet Estimate Decreased; Segmented Neutrophils 90 % (50-85); Total Cells Counted 100
[2017-11-08] MEDS: PIPERACILLIN/TAZOBACTAM 3,375 MG in SODIUM CHLORIDE 0.9% 100 ML IV SCH ×3 (06:38→22:30)
[2017-11-08] MEDS: methylPREDNISolone SOD SUC 125 MG/2 ML VIAL IV SCH (06:38)
[2017-11-08] MEDS: methylPREDNISolone SOD SUC 40 MG/1 ML VIAL IV SCH ×2 (08:30→19:59)
[2017-11-08] MEDS: FUROSEMIDE 40 MG/4 ML VIAL IV SCH (08:38)
[2017-11-08] MEDS: NICOTINE 21 MG/24 HR PATCH TRANSDERM SCH (08:39)
[2017-11-08] MEDS: PANTOPRAZOLE 40 MG TABLET PO SCH (08:40)
[2017-11-08] MEDS: SODIUM BICARBONATE 650 MG TABLET PO SCH ×3 (08:40→20:03)
[2017-11-08] MEDS: POTASSIUM CHLORIDE 20 MEQ TABLET PO PRN (08:41)
[2017-11-08] MEDS: VANCOMYCIN INJ 1,000 MG in SODIUM CHLORIDE 0.9% 250 ML IV SCH ×2 (11:22→22:29)
[2017-11-08] MEDS: POTASSIUM CHLORIDE INJ 20 MEQ in LACTATED RINGERS 1,000 ML IV SCH (19:14)
[2017-11-08] MEDS: SODIUM CHLORIDE 0.9% 1,000 ML IV SCH (19:57)
[2017-11-09] MEDS: ALBUTEROL/IPRATROPIUM 3 ML NEB RESP TX SCH ×4 (01:19→19:26)
[2017-11-09] MEDS: DILTIAZEM 30 MG TABLET PO SCH ×4 (02:38→21:36)
[2017-11-09 04:39] LABS: ABG HCO3 24.3 MMOL/L (20-26); ABG Oxygen Saturation 95.2 % (95-100); ABG PH 7.413 (7.35-7.45); ABG PO2 79.7 MM HG (80-95); ABG TCO2 21.8 MMOL/L (23-27); Allen Test Positive; Pt O2 Delivery Device Other
[2017-11-09 05:28] LABS: Basophils % 0.1 % (0.0-0.8); Hematocrit 30.5 VOL% (42.0-52.0); Hemoglobin 10.6 GM/DL (14.0-18.0); Immature Granulocytes % 1.2 %; Lymphocytes # 0.5 10*3/uL (1.4-4.0); Lymphocytes % 5.7 % (21.2-54.2); Mean Corpuscular HGB Conc 34.8 GM/DL (32-36); Mean Corpuscular Hemoglobin 31 PG (27-34); Mean Corpuscular Volume 89.2 FL (87-102); Mean Platelet Volume 12.4 FL (9.6-12.0); Monocytes # 0.4 10*3/uL (0.11-0.8); Monocytes % 4.9 % (1.7-12.7); Neutrophils # 7.6 10*3/uL (1.4-7.4); Neutrophils % 88.1 % (38.7-73.9); Platelet Count 160 T/CUMM (130-400); Red Blood Count 3.42 MC/CUMM (3.8-5.5); Red Cell Distribution Width 15.2 % (9.3-17.3); White Blood Count 8.6 T/CUMM (4-12)
[2017-11-09 05:49] LABS: Calcium 8.6 MG/DL (8.5-10.1); Osmolality,Calculated 298.7 MOS/KG (273-304)
[2017-11-09] MEDS: PIPERACILLIN/TAZOBACTAM 3,375 MG in SODIUM CHLORIDE 0.9% 100 ML IV SCH ×3 (06:02→23:23)
[2017-11-09 06:10] LABS: Lymphocytes 8 % (20-55); Platelet Estimate Normal; Segmented Neutrophils 87 % (50-85); Total Cells Counted 100
[2017-11-09] MEDS: MAGNESIUM SULF RIDER 2 GM in PREMIX 1 EACH IV PRN (06:30)
[2017-11-09] MEDS: POTASSIUM CHLORIDE 20 MEQ TABLET PO PRN ×6 (06:32→23:23)
[2017-11-09] MEDS: SODIUM BICARBONATE 650 MG TABLET PO SCH (08:32)
[2017-11-09] MEDS: PANTOPRAZOLE 40 MG TABLET PO SCH (08:32)
[2017-11-09] MEDS: FUROSEMIDE 40 MG/4 ML VIAL IV SCH (08:34)
[2017-11-09] MEDS: methylPREDNISolone SOD SUC 40 MG/1 ML VIAL IV SCH ×2 (08:38→21:19)
[2017-11-09] MEDS: NICOTINE 21 MG/24 HR PATCH TRANSDERM SCH (08:46)
[2017-11-09] MEDS: VANCOMYCIN INJ 1,000 MG in SODIUM CHLORIDE 0.9% 250 ML IV SCH (10:30)
[2017-11-09] MEDS: FOLIC ACID 1 MG TABLET PO SCH (13:18)
[2017-11-09] MEDS: MULTIVITAMIN (CENTRUM) TABLET PO SCH (13:18)
[2017-11-09] MEDS: THIAMINE 100 MG TABLET PO SCH (13:18)
[2017-11-10] MEDS: POTASSIUM CHLORIDE 20 MEQ TABLET PO PRN ×3 (01:20→06:34)
[2017-11-10] MEDS: ALBUTEROL/IPRATROPIUM 3 ML NEB RESP TX SCH ×4 (01:52→19:37)
[2017-11-10] MEDS: DILTIAZEM 30 MG TABLET PO SCH ×2 (04:17→09:52)
[2017-11-10] MEDS ORDERED: VANCOMYCIN INJ 1,000 MG in SODIUM CHLORIDE 0.9% 250 ML IV SCH (04:30)
[2017-11-10 04:57] LABS: Basophils % 0.1 % (0.0-0.8); Hematocrit 31.7 VOL% (42.0-52.0); Hemoglobin 10.9 GM/DL (14.0-18.0); Immature Granulocytes % 0.6 %; Immature Granulocytes Absolute 0.05 #; Lymphocytes # 0.5 10*3/uL (1.4-4.0); Lymphocytes % 6.7 % (21.2-54.2); Mean Corpuscular HGB Conc 34.4 GM/DL (32-36); Mean Corpuscular Hemoglobin 31 PG (27-34); Mean Corpuscular Volume 90.3 FL (87-102); Mean Platelet Volume 12.1 FL (9.6-12.0); Monocytes # 0.3 10*3/uL (0.11-0.8); Monocytes % 3.9 % (1.7-12.7); Neutrophils # 6.8 10*3/uL (1.4-7.4); Neutrophils % 88.7 % (38.7-73.9); Platelet Count 174 T/CUMM (130-400); Red Blood Count 3.51 MC/CUMM (3.8-5.5); Red Cell Distribution Width 14.6 % (9.3-17.3); White Blood Count 7.7 T/CUMM (4-12)
[2017-11-10 05:29] LABS: Calcium 8.2 MG/DL (8.5-10.1); Osmolality,Calculated 285.7 MOS/KG (273-304); Potassium 3.2 MMOL/L (3.5-5.1)
[2017-11-10 06:09] LABS: Hypochromasia 1+; Lymphocytes 2 % (20-55); Microcytosis 1+; Segmented Neutrophils 97 % (50-85); Target Cells Few; Total Cells Counted 100
[2017-11-10 06:10] LABS: Platelet Estimate Adequate
[2017-11-10] MEDS: PIPERACILLIN/TAZOBACTAM 3,375 MG in SODIUM CHLORIDE 0.9% 100 ML IV SCH (06:25)
[2017-11-10] MEDS ORDERED: methylPREDNISolone SOD SUC 40 MG/1 ML VIAL IV SCH (08:00)
[2017-11-10] MEDS: MAGNESIUM SULF RIDER 2 GM in PREMIX 1 EACH IV PRN ×2 (09:43→11:47)
[2017-11-10] MEDS: NICOTINE 21 MG/24 HR PATCH TRANSDERM SCH (09:44)
[2017-11-10] MEDS: FOLIC ACID 1 MG TABLET PO SCH (09:47)
[2017-11-10] MEDS: AMOXICILLIN/CLAV 875 MG TABLET PO SCH ×2 (09:47→20:55)
[2017-11-10] MEDS: THIAMINE 100 MG TABLET PO SCH (09:48)
[2017-11-10] MEDS: predniSONE 20 MG TABLET PO SCH (09:48)
[2017-11-10] MEDS: PANTOPRAZOLE 40 MG TABLET PO SCH (09:49)
[2017-11-10] MEDS: DILTIAZEM CD 120 MG CAPSULE PO SCH (09:49)
[2017-11-10] MEDS: MULTIVITAMIN (CENTRUM) TABLET PO SCH (09:50)
[2017-11-10] MEDS: SODIUM BICARBONATE 650 MG TABLET PO SCH (09:52)
[2017-11-10] MEDS: FUROSEMIDE 40 MG/4 ML VIAL IV SCH (09:52)
[2017-11-10] MEDS ORDERED: LORazepam 1 MG TABLET PO PRN (16:45)
[2017-11-11] MEDS: ALBUTEROL/IPRATROPIUM 3 ML NEB RESP TX SCH ×4 (00:47→19:02)
[2017-11-11 05:25] LABS: Basophils % 0.1 % (0.0-0.8); Hematocrit 29.1 VOL% (42.0-52.0); Hemoglobin 10.1 GM/DL (14.0-18.0); Immature Granulocytes % 0.9 %; Immature Granulocytes Absolute 0.09 #; Lymphocytes # 0.7 10*3/uL (1.4-4.0); Lymphocytes % 7.3 % (21.2-54.2); Mean Corpuscular HGB Conc 34.7 GM/DL (32-36); Mean Corpuscular Hemoglobin 31 PG (27-34); Mean Corpuscular Volume 88.4 FL (87-102); Mean Platelet Volume 12.1 FL (9.6-12.0); Monocytes # 0.6 10*3/uL (0.11-0.8); Monocytes % 6.5 % (1.7-12.7); NRBC # 0.02 10*3/uL; Neutrophils # 8.3 10*3/uL (1.4-7.4); Neutrophils % 85.2 % (38.7-73.9); Platelet Count 194 T/CUMM (130-400); Red Blood Count 3.29 MC/CUMM (3.8-5.5); Red Cell Distribution Width 14.5 % (9.3-17.3); White Blood Count 9.8 T/CUMM (4-12)
[2017-11-11 06:07] LABS: Calcium 8.7 MG/DL (8.5-10.1); Potassium 3.2 MMOL/L (3.5-5.1)
[2017-11-11] MEDS: POTASSIUM CHLORIDE 20 MEQ TABLET PO PRN ×4 (08:39→13:57)
[2017-11-11] MEDS: NICOTINE 21 MG/24 HR PATCH TRANSDERM SCH (08:40)
[2017-11-11] MEDS: FOLIC ACID 1 MG TABLET PO SCH (08:40)
[2017-11-11] MEDS: DILTIAZEM CD 120 MG CAPSULE PO SCH (08:40)
[2017-11-11] MEDS: predniSONE 20 MG TABLET PO SCH (08:40)
[2017-11-11] MEDS: PANTOPRAZOLE 40 MG TABLET PO SCH (08:40)
[2017-11-11] MEDS: THIAMINE 100 MG TABLET PO SCH (08:40)
[2017-11-11] MEDS: FUROSEMIDE 40 MG TABLET PO SCH (08:40)
[2017-11-11] MEDS: MULTIVITAMIN (CENTRUM) TABLET PO SCH (08:40)
[2017-11-11] MEDS: AMOXICILLIN/CLAV 875 MG TABLET PO SCH ×2 (08:40→20:19)
[2017-11-11] MEDS: SPIRONOLACTONE 25 MG TABLET PO SCH (10:35)
[2017-11-12] MEDS: ALBUTEROL/IPRATROPIUM 3 ML NEB RESP TX SCH ×4 (01:33→19:35)
[2017-11-12 03:22] LABS: Eosinophils % 0.2 % (0.00-10.9); Hematocrit 29.5 VOL% (42.0-52.0); Hemoglobin 10.2 GM/DL (14.0-18.0); Immature Granulocytes % 0.5 %; Immature Granulocytes Absolute 0.05 #; Lymphocytes # 0.6 10*3/uL (1.4-4.0); Lymphocytes % 6.8 % (21.2-54.2); Mean Corpuscular HGB Conc 34.6 GM/DL (32-36); Mean Corpuscular Hemoglobin 31 PG (27-34); Mean Corpuscular Volume 89.1 FL (87-102); Mean Platelet Volume 12.1 FL (9.6-12.0); Monocytes # 0.6 10*3/uL (0.11-0.8); Monocytes % 6.5 % (1.7-12.7); Neutrophils # 7.8 10*3/uL (1.4-7.4); Platelet Count 192 T/CUMM (130-400); Red Blood Count 3.31 MC/CUMM (3.8-5.5); Red Cell Distribution Width 14.6 % (9.3-17.3); White Blood Count 9.1 T/CUMM (4-12)
[2017-11-12 03:50] LABS: Calcium 8.4 MG/DL (8.5-10.1); Osmolality,Calculated 269.2 MOS/KG (273-304); Potassium 3.9 MMOL/L (3.5-5.1)
[2017-11-12] MEDS: SPIRONOLACTONE 25 MG TABLET PO SCH (09:07)
[2017-11-12] MEDS: DILTIAZEM CD 180 MG CAPSULE PO SCH (09:07)
[2017-11-12] MEDS: THIAMINE 100 MG TABLET PO SCH (09:07)
[2017-11-12] MEDS: POTASSIUM CHLORIDE 20 MEQ TABLET PO PRN (09:08)
[2017-11-12] MEDS: AMOXICILLIN/CLAV 875 MG TABLET PO SCH ×2 (09:08→21:27)
[2017-11-12] MEDS: FOLIC ACID 1 MG TABLET PO SCH (09:08)
[2017-11-12] MEDS: MULTIVITAMIN (CENTRUM) TABLET PO SCH (09:08)
[2017-11-12] MEDS: FUROSEMIDE 40 MG TABLET PO SCH (09:08)
[2017-11-12] MEDS: NICOTINE 21 MG/24 HR PATCH TRANSDERM SCH (09:08)
[2017-11-12] MEDS: PANTOPRAZOLE 40 MG TABLET PO SCH (09:08)
[2017-11-12] MEDS: predniSONE 10 MG TABLET PO SCH (09:08)
[2017-11-13] MEDS: ALBUTEROL/IPRATROPIUM 3 ML NEB RESP TX SCH ×3 (01:35→13:30)
[2017-11-13 02:42] LABS: Eosinophils # 0.1 10*3/uL (0.0-0.87); Eosinophils % 1.5 % (0.00-10.9); Hematocrit 27.9 VOL% (42.0-52.0); Hemoglobin 9.9 GM/DL (14.0-18.0); Immature Granulocytes % 0.6 %; Immature Granulocytes Absolute 0.04 #; Lymphocytes # 0.8 10*3/uL (1.4-4.0); Lymphocytes % 11.1 % (21.2-54.2); Mean Corpuscular HGB Conc 35.5 GM/DL (32-36); Mean Corpuscular Hemoglobin 31 PG (27-34); Mean Corpuscular Volume 88.6 FL (87-102); Mean Platelet Volume 11.7 FL (9.6-12.0); Monocytes # 0.6 10*3/uL (0.11-0.8); Monocytes % 8.6 % (1.7-12.7); Neutrophils # 5.6 10*3/uL (1.4-7.4); Neutrophils % 78.2 % (38.7-73.9); Platelet Count 197 T/CUMM (130-400); Red Blood Count 3.15 MC/CUMM (3.8-5.5); Red Cell Distribution Width 14.6 % (9.3-17.3); White Blood Count 7.1 T/CUMM (4-12)
[2017-11-13 03:19] LABS: Calcium 8.7 MG/DL (8.5-10.1); Osmolality,Calculated 265.5 MOS/KG (273-304); Potassium 3.7 MMOL/L (3.5-5.1)
[2017-11-13] MEDS: MULTIVITAMIN (CENTRUM) TABLET PO SCH (08:17)
[2017-11-13] MEDS: PANTOPRAZOLE 40 MG TABLET PO SCH (08:18)
[2017-11-13] MEDS: THIAMINE 100 MG TABLET PO SCH (08:18)
[2017-11-13] MEDS: FUROSEMIDE 40 MG TABLET PO SCH (08:18)
[2017-11-13] MEDS: DILTIAZEM CD 180 MG CAPSULE PO SCH (08:18)
[2017-11-13] MEDS: FOLIC ACID 1 MG TABLET PO SCH (08:18)
[2017-11-13] MEDS: SPIRONOLACTONE 25 MG TABLET PO SCH (08:18)
[2017-11-13] MEDS: AMOXICILLIN/CLAV 875 MG TABLET PO SCH (08:19)
[2017-11-13] MEDS: NICOTINE 21 MG/24 HR PATCH TRANSDERM SCH (08:19)
[2017-11-13] MEDS: predniSONE 10 MG TABLET PO SCH (08:19)
[2017-11-13 13:12] VITALS: BP 118/69
== END 2017-11-13 16:02 | disposition home or self-care (01) | DRG 871 ==
LOC: SUATTDRO 18:58 → N.TELES 18:58 → N.CC 11-04 00:04 → N.4E 11-09 15:09
PROVIDERS: ADMIT Internal Medicine; ATTEND Internal Medicine